=== PATIENT | male | born 1935 | race Caucasian/White ===

== ENCOUNTER 2016-11-27 08:05 | Emergency (ER) | payer MEDICARE, MEDICAID ==
--- NOTE | 2016-11-27 08:16 | EDM.PDOC ---
ED HISTORY OF PRESENT ILLNESS - General Chief Complaint: Respiratory Problem Stated Complaint: [id number] RATTLING IN CHEST LOW FEVER SOB Time Seen by Provider: 11/27/16 08:16 Source of Information: Reports: Old records, RN, RN notes reviewed, Other ([facility] Home caregiver/staff) History Limitations: Reports: Physical impairment (Dev. Delayed, non-ambulatory , non-verbal patient) - History of Present Illness INITIAL COMMENTS - FREE TEXT/NARRATIVE: Presented to ER from [facility] Home by van with caregiver reporting that pt was found to have a cough, low grade fever, and no appetite this morning. Pt has Hx of pneumonia. Denies pain, N/V/D/C. Pt is non-verbal and unable to provide any history. Symptom Onset Date: 11/27/16 Timing/Duration: Reports: Constant Severity: moderate Location, General: Reports: chest Improves with: Reports: None Worsens with: Reports: None Context, General: Reports: Sick contact (custodial resident.) Associated Symptoms (General): Reports: no other symptoms - Related Data Allergies/ADRs: Allergies Allergy/AdvReac Type Severity Reaction Status Date / Time No Known Allergies Allergy Verified 04/24/16 18:25 Home Meds: Home Meds Aspirin [Lis Chewable Aspirin] 81 mg PO BEDTIME 09/08/13 [History] Calcium Carb & Citrate/Vit D3 [Calcium + D3 ER Tablet] 1 each PO BID 09/08/13 [ History] Carbamide Peroxide [Debrox] 15 ml OT ASDIRECTED 09/08/13 [History] Multivitamin [Multi-Vitamin Daily] 1 tab PO DAILY 09/08/13 [History] QUEtiapine [SEROquel] 50 mg PO DAILY 09/08/13 [History] QUEtiapine [SEROquel] 100 mg PO BEDTIME 09/08/13 [History] Levothyroxine [Synthroid] 100 mcg PO ACBREAKFAST tablet 06/14/15 [Rx] Clopidogrel [Plavix] 75 mg PO BEDTIME 09/22/15 [History] Nitroglycerin [Nitrostat] 0.3 mg SL ASDIRECTED PRN 09/22/15 [History] diphenhydrAMINE [Benadryl] 25 mg PO BEDTIME PRN 09/22/15 [History] Acetaminophen 325 mg PO ASDIRECTED 05/23/16 [History] Lactose-Reduced Food [Ensure] 1 can PO TID 05/23/16 [History] Sennosides/Docusate Sodium [Senna S Tablet] 1 each PO BID 05/23/16 [History] Ibuprofen [Motrin] 400 mg PO Q6H PRN #30 tablet 05/26/16 [Rx] Lidocaine 5% [Lidoderm 5%] 700 mg TOP Q24H #12 patch 05/26/16 [Rx] Remove Patch 1 ea TRDERM BEDTIME each 05/26/16 [Rx] Past Medical History HEENT History: Reports: Impaired vision Cardiovascular History: Reports: Pacemaker, Syncope Respiratory History: Reports: Bronchitis, recurrent, Pneumonia, recurrent Gastrointestinal History: Reports: Chronic constipation Genitourinary History: Reports: Prostate disorder, Urinary incontinence, Other ( see below) Other Genitourinary History: prostate ca Musculoskeletal History: Reports: Osteoarthritis, Other (see below) Other Musculoskeletal History: compression fractures Neurological History: Reports: Other (see below) Other Neuro History: syncope Psychiatric History: Reports: Dementia, Developmental delay, Other (see below) Other Psychiatric History: devel delat, impulse disorder, ocd, intellectual disordr, head injury unspecified Endocrine/Metabolic History: Reports: Hypothyroidism Hematologic History: Reports: Anemia Oncologic (Cancer) History: Reports: Prostate, Other (see below) Other Oncologic History: pt on lupron injections Dermatologic History: Reports: Other (see below) Other Dermatologic History: skin to neck and head creme is to be applied as pt picks at skin - Infectious Disease History Infectious Disease History: Reports: Shingles - Past Surgical History Cardiovascular Surgical History: Reports: Pacer GI Surgical History: Reports: Colonoscopy Social & Family History - Family History Family Medical History: Noncontributory - Tobacco Use Smoking Status *Q: Unknown Ever Smoked Second Hand Smoke Exposure: No - Alcohol Use Days Per Week of Alcohol Use: 0 - Recreational Drug Use Recreational Drug Use: No - Living Situation & Occupation Living situation: Reports: other (custodial) Occupation: disabled ED ROS GENERAL - Review of Systems Review Of Systems: Unable To Obtain (non-verbal patient) ED EXAM, GENERAL - Physical Exam Exam: See Below Exam Limited By: Physical impairment (non-verbal, developmentally delayed patient.) General Appearance: alert, no apparent distress Eye Exam: bilateral eye: normal inspection Ears: normal external exam, normal canal, hearing loss (chronic/stable) Nose: normal inspection, normal mucosa, no blood Throat/Mouth: Normal lips, No airway compromise, Other (dry oral membranes) Head: atraumatic, normocephalic Neck: normal inspection, supple, non-tender, full range of motion Respiratory/Chest: no respiratory distress, no accessory muscle use, decreased breath sounds, crackles (bibasilar), other (decreased sounds at B/L bases) Cardiovascular: normal peripheral pulses GI/Abdominal: normal bowel sounds, soft, non tender, no distention, no abnormal bruit Back Exam: normal inspection Extremities: normal inspection Neurological: alert, no motor/sensory deficits, other (at neuro baseline per caregiver) Psychiatric: normal mood Skin Exam: Warm, Dry, Intact, No rash Course - Vital Signs Last Recorded V/S: Last Vital Signs Temp 37.0 C 11/27/16 08:10 Pulse 86 11/27/16 08:10 Resp 22 H 11/27/16 08:10 BP 103/62 11/27/16 08:10 Pulse Ox 95 11/27/16 08:10 - Orders/Labs/Meds Orders: Active Orders 24 hr Category Date Time Status INFLUENZA A+B AG SCREEN [RM] Stat Lab 11/27/16 08:26 Uncollected Labs: Laboratory Tests 11/27/16 11/27/16 Range/Units 08:28 08:28 WBC 12.2 H (5.0-10.0) 10^3/uL RBC 3.86 L (4.6-6.2) 10^6/uL Hgb 11.7 L (14.0-18.0) g/dL Hct 34.3 L (40.0-54.0) % MCV 88.9 (80-100) fL MCH 30.3 (27.0-34.0) pg MCHC 34.1 (33.0-35.0) g/dL Plt Count 247 (150-450) 10^3/uL Neut % (Auto) 73.6 (42.2-75.2) % Lymph % (Auto) 13.1 L (20.5-50.1) % [place] % (Auto) 8.0 (2-8) % Eos % (Auto) 4.8 H (1.0-3.0) % Baso % (Auto) 0.5 (0.0-1.0) % Sodium 132 L (135-145) mmol/L Potassium 4.4 (3.6-5.0) mmol/L Chloride 98 L (101-111) mmol/L Carbon Dioxide 26.0 (21.0-31.0) mmol/L Anion Gap 12.4 BUN 26 H (7-18) mg/dL Creatinine 0.9 (0.6-1.3) mg/dL Est Cr Clr Drug Dosing 50.05 mL/min Estimated GFR (MDRD) > 60 BUN/Creatinine Ratio 28.88 Glucose 92 (74-105) mg/dL Calcium 9.1 (8.4-10.2) mg/dl Total Bilirubin 0.6 (0.2-1.0) mg/dL AST 25 (10-42) IU/L ALT 18 (10-60) IU/L Alkaline Phosphatase 54 (42-121) IU/L Total Protein 7.0 (6.7-8.2) g/dl Albumin 3.8 (3.2-5.5) g/dl Globulin 3.2 Albumin/Globulin Ratio 1.19 - Radiology Interpretation Free Text/Narrative:: CXR: no acute process, chronic findings, see Rad. report. CT Results Date: 11/27/16 Departure - Departure Time of Disposition: 09:07 Disposition: Home, Self-Care 01 Condition: fair Clinical Impression: Acute bacterial bronchitis, History of aspiration pneumonia Fever Qualifiers: Fever type: unspecified Qualified Code(s): R50.9 - Fever, unspecified Instructions: Acute Bronchitis, Fever, Adult, [id number], Aspiration Precautions Forms: ED Department Discharge Additional Instructions: Rx: Clindamycin 300mg Follow up in clinic in 5 to 6 days for recheck. Return to ER if worse at any time. - My Orders Last 24 Hours: My Active Orders 11/27/16 08:26 INFLUENZA A+B AG SCREEN [RM] Stat - Assessment/Plan Last 24 Hours: My Active Orders 11/27/16 08:26 INFLUENZA A+B AG SCREEN [RM] Stat
[2016-11-27 08:23] VITALS: BP 103/62
[2016-11-27 08:53] LABS: CHLORIDE,CL 98 mmol/L (101-111); SODIUM,NA 132 mmol/L (135-145)
--- NOTE | 2016-11-27 08:57 | CR ---
CLINICAL HISTORY: 81-year-old male with cough. INTERPRETATION: Abnormal. Large hiatus hernia (air-fluid level) lower middle mediastinum. 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 No new signs of lobar pneumonia when compared to 24 October 2016 exam. Cardiac pacemaker and borderline cardiomegaly but no cephalization of vascular flow, signs of alveol ar edema or dependent pleural fluid accumulation. No lung mass or hilar lymphadenopathy. CONCLUSION: Large hiatus hernia (clinical aspiration?). No acute new cardiopulmonary abnormality or focal lobar pneumonia.
== END 2016-11-27 09:21 | disposition home or self-care (01) ==
LOC: DL.ED 08:05
DX: J20.8 Acute bronchitis due to other specified organisms (principal); M19.90 Unspecified osteoarthritis, unspecified site; E03.9 Hypothyroidism, unspecified; Z79.82 Long term (current) use of aspirin; Z79.899 Other long term (current) drug therapy
CPT/HCPCS: 36415; 71010; 80053; 85025; 99283; 99285

== ENCOUNTER 2017-03-12 11:35 | Emergency (ER) | payer MEDICARE, MEDICAID ==
--- NOTE | 2017-03-12 11:41 | EDM.PDOC ---
ED HPI GENERAL MEDICAL PROBLEM - General Chief Complaint: Respiratory Problem Stated Complaint: IN BY AMBULANCE Time Seen by Provider: 03/12/17 11:35 Source of Information: Reports: EMS, Other (caregiver) History Limitations: Reports: Other (The patient is a [facility] home patient with minimal communication) - History of Present Illness INITIAL COMMENTS - FREE TEXT/NARRATIVE: This 81 yo male patient was brought to the ED by [facility] due to labored breathing reported by the patient's caregivers. The caregivers called the patient's primary care facility and were advised to have the patient evaluated in the emergency department. EMS reports the patient did respond to questions, his respiration rate was 14 (non-labored), lung sounds were clear and oxygen saturation was in the upper 90's. Onset: Today, Sudden Onset Date: 03/12/17 Duration: Hour(s):, Constant Location: Reports: Chest Quality: Reports: Other Severity: Mild Improves with: Reports: None Worsens with: Reports: None Associated Symptoms: Reports: Shortness of Breath (labored breathing reported by caregivers) - Related Data Allergies Allergy/AdvReac Type Severity Reaction Status Date / Time No Known Allergies Allergy Verified 04/24/16 18:25 Home Meds: Home Meds Aspirin [Lis Chewable Aspirin] 81 mg PO BEDTIME 09/08/13 [History] Calcium Carb & Citrate/Vit D3 [Calcium + D3 ER Tablet] 1 each PO BID 09/08/13 [ History] Carbamide Peroxide [Debrox] 15 ml OT ASDIRECTED 09/08/13 [History] Multivitamin [Multi-Vitamin Daily] 1 tab PO DAILY 09/08/13 [History] QUEtiapine [SEROquel] 50 mg PO DAILY 09/08/13 [History] QUEtiapine [SEROquel] 100 mg PO BEDTIME 09/08/13 [History] Levothyroxine [Synthroid] 100 mcg PO ACBREAKFAST tablet 06/14/15 [Rx] Clopidogrel [Plavix] 75 mg PO BEDTIME 09/22/15 [History] Nitroglycerin [Nitrostat] 0.3 mg SL ASDIRECTED PRN 09/22/15 [History] diphenhydrAMINE [Benadryl] 25 mg PO BEDTIME PRN 09/22/15 [History] Acetaminophen 325 mg PO ASDIRECTED 05/23/16 [History] Lactose-Reduced Food [Ensure] 1 can PO TID 05/23/16 [History] Sennosides/Docusate Sodium [Senna S Tablet] 1 each PO BID 05/23/16 [History] Ibuprofen [Motrin] 400 mg PO Q6H PRN #30 tablet 05/26/16 [Rx] Lidocaine 5% [Lidoderm 5%] 700 mg TOP Q24H #12 patch 05/26/16 [Rx] Remove Patch 1 ea TRDERM BEDTIME each 05/26/16 [Rx] Past Medical History HEENT History: Reports: Impaired Vision Other HEENT History: [place] even with hearing aides. Wears glasses Cardiovascular History: Reports: Pacemaker, Syncope Respiratory History: Reports: Bronchitis, Recurrent, Pneumonia, Recurrent Gastrointestinal History: Reports: Chronic Constipation Genitourinary History: Reports: Prostate Disorder, Urinary Incontinence, Other ( See Below) Other Genitourinary History: prostate ca Musculoskeletal History: Reports: Osteoarthritis, Other (See Below) Other Musculoskeletal History: compression fractures Neurological History: Reports: Other (See Below) Other Neuro History: syncope Psychiatric History: Reports: Dementia, Developmental Delay, Other (See Below) Other Psychiatric History: devel delat, impulse disorder, ocd, intellectual disordr, head injury unspecified Endocrine/Metabolic History: Reports: Hypothyroidism Hematologic History: Reports: Anemia Oncologic (Cancer) History: Reports: Prostate, Other (See Below) Other Oncologic History: pt on lupron injections Dermatologic History: Reports: Other (See Below) Other Dermatologic History: skin to neck and head creme is to be applied as pt picks at skin - Infectious Disease History Infectious Disease History: Reports: Shingles - Past Surgical History Cardiovascular Surgical History: Reports: Pacer GI Surgical History: Reports: Colonoscopy Social & Family History - Family History Family Medical History: Noncontributory - Tobacco Use Smoking Status *Q: Unknown Ever Smoked Second Hand Smoke Exposure: No - Caffeine Use Caffeine Use: Reports: None - Alcohol Use Days Per Week of Alcohol Use: 0 - Recreational Drug Use Recreational Drug Use: No - Living Situation & Occupation Living situation: Reports: Other Occupation: Disabled ED ROS GENERAL - Review of Systems Review Of Systems: ROS reveals no pertinent complaints other than HPI. ED EXAM, GENERAL - Physical Exam Exam: See Below Exam Limited By: No Limitations General Appearance: Alert, WD/WN, No Apparent Distress Eye Exam: Bilateral Eye: EOMI, Normal Inspection, PERRL Ears: Normal External Exam, Hearing Grossly Normal, Normal TMs, Other (cerumen bilateral canals) Nose: Normal Inspection, Normal Mucosa, No Blood Throat/Mouth: Other (The patient refused to open his mouth during examination) Head: Atraumatic, Normocephalic Neck: Normal Inspection, Supple, Non-Tender, Full Range of Motion Respiratory/Chest: No Respiratory Distress, Lungs Clear, Normal Breath Sounds, No Accessory Muscle Use, Chest Non-Tender Cardiovascular: Normal Peripheral Pulses, Regular Rate, Rhythm, No Edema, No Gallop, No JVD, No Murmur, No Rub GI/Abdominal: Normal Bowel Sounds, Soft, Non-Tender, No Organomegaly, No Distention, No Abnormal Bruit, No Mass (Male) Exam: Deferred Rectal (Males) Exam: Deferred Back Exam: Normal Inspection, Full Range of Motion, NT Extremities: Normal Inspection, Normal Range of Motion, Non-Tender, Normal Capillary Refill, No Pedal Edema Neurological: Alert, CN II-XII Intact, Normal Cognition Psychiatric: Normal Affect, Normal Mood Skin Exam: Warm, Dry, Intact, Normal Color, No Rash Lymphatic: No Adenopathy Course - Vital Signs Last Recorded V/S: Last Vital Signs Temp 35.5 C 03/12/17 11:39 Pulse 80 03/12/17 11:39 Resp 20 03/12/17 11:39 BP 129/69 03/12/17 11:39 Pulse Ox 95 03/12/17 11:39 - Orders/Labs/Meds Labs: Laboratory Tests 03/12/17 03/12/17 Range/Units 11:45 11:45 WBC 8.3 (5.0-10.0) 10^3/uL RBC 4.22 L (4.6-6.2) 10^6/uL Hgb 12.5 L (14.0-18.0) g/dL Hct 36.1 L (40.0-54.0) % MCV 85.5 (80-100) fL MCH 29.6 (27.0-34.0) pg MCHC 34.6 (33.0-35.0) g/dL Plt Count 219 (150-450) 10^3/uL Neut % (Auto) 65.9 (42.2-75.2) % Lymph % (Auto) 21.8 (20.5-50.1) % [place] % (Auto) 5.3 (2-8) % Eos % (Auto) 6.5 H (1.0-3.0) % Baso % (Auto) 0.5 (0.0-1.0) % Sodium 134 L (135-145) mmol/L Potassium 4.9 (3.6-5.0) mmol/L Chloride 98 L (101-111) mmol/L Carbon Dioxide 27.0 (21.0-31.0) mmol/L Anion Gap 13.9 BUN 20 H (7-18) mg/dL Creatinine 1.0 (0.6-1.3) mg/dL Est Cr Clr Drug Dosing TNP Estimated GFR (MDRD) > 60 BUN/Creatinine Ratio 20.00 Glucose 90 (74-105) mg/dL Calcium 9.5 (8.4-10.2) mg/dl Total Bilirubin 0.7 (0.2-1.0) mg/dL AST 21 (10-42) IU/L ALT 17 (10-60) IU/L Alkaline Phosphatase 60 (42-121) IU/L Total Protein 6.9 (6.7-8.2) g/dl Albumin 3.8 (3.2-5.5) g/dl Globulin 3.1 Albumin/Globulin Ratio 1.23 Departure - Departure Time of Disposition: 12:15 Disposition: Home, Self-Care 01 Condition: Fair Clinical Impression: Worried well - Discharge Information Forms: ED Department Discharge Care Plan Goals: The patient's caregiver was advised of the examination, lab and x-ray results during the visit. The caregiver was encouraged to continue to monitor the patient for any additional changes or symptoms. If the patient has any additional symptoms or further concerns, the patient should follow-up with his primary care facility or return to the emergency department.
[2017-03-12 12:08] LABS: CHLORIDE,CL 98 mmol/L (101-111); SODIUM,NA 134 mmol/L (135-145)
--- NOTE | 2017-03-12 12:11 | CR ---
Clinical history: 81-year-old male "labored" breathing. Interpretation: Old healed fracture deformity left clavicle. Cardiac pacemaker leads intact. Less than optimal inspiratory effort crowds and accentuates the cardiac silhouette and lung markings but no cephalization of vascular flow, signs of alveolar edema or dependent effusion i.e. no curren t evidence of heart failure. No lung mass, hilar lymphadenopathy or new focal lobar pneumonia when compared to similar AP film 27 November 2016. CONCLUSION: No acute new cardiopulmonary abnormality. No pneumothorax.
[2017-03-12 12:17] VITALS: BP 131/70
== END 2017-03-12 12:30 | disposition home or self-care (01) ==
LOC: DL.ED 11:35
DX: Z71.1 Person with feared health complaint in whom no diagnosis is made (principal); H54.7 Unspecified visual loss; Z87.01 Personal history of pneumonia (recurrent); E03.9 Hypothyroidism, unspecified; Z79.82 Long term (current) use of aspirin; Z79.899 Other long term (current) drug therapy; M19.90 Unspecified osteoarthritis, unspecified site; Z86.2 Personal history of diseases of the blood and blood-forming organs and certain disorders involving the immune mechanism
CPT/HCPCS: 36415; 71010; 80053; 85025; 99282; 99285

== ENCOUNTER 2017-04-10 13:31 | Emergency (ER) | payer MEDICARE, MEDICAID ==
[2017-04-10 14:28] VITALS: BP 123/74
--- NOTE | 2017-04-10 15:37 | CR ---
Clinical history: 81-year-old male clinical "aspiration". Interpretation: Hiatus hernia incarcerated in the lower middle mediastinum and chronic coarse accent uation of the lung markings both bases but no new focal lobar consolidation compared 12 March 2017 ex am. Less than optimal his story effort exaggerating the cardiac silhouette which remains within normal l imits and no new cephalization of flow, signs of alveolar edema or dependent pleural effusion compar ed to the 12 March film (cardiac pacemaker leads intact and unchanged). No lung mass or hilar lymphadenopathy. CONCLUSION: Hiatus hernia. No lobar pneumonia.
--- NOTE | 2017-04-10 15:47 | EDM.PDOC ---
ED HPI GENERAL MEDICAL PROBLEM - General Chief Complaint: General Stated Complaint: CHOKED WHILE EATING/COMING BY PRIVATE CAR Time Seen by Provider: 04/10/17 15:15 Source of Information: Reports: Provider History Limitations: Reports: No Limitations - History of Present Illness INITIAL COMMENTS - FREE TEXT/NARRATIVE: 81 yo male presents for evaluation after choking on lunch. Per skin care specialist, pt was eating pureed diet and had a coughing spells that resolved without interventions. Pt is alert, confused at baseline but in no distress. Denies pain. No other complaints. Onset: Today Duration: Resolved Prior to Arrival Associated Symptoms: Reports: No Other Symptoms - Related Data Allergies Allergy/AdvReac Type Severity Reaction Status Date / Time No Known Allergies Allergy Verified 04/10/17 14:28 Home Meds: Home Meds Aspirin [Lis Chewable Aspirin] 81 mg PO BEDTIME 09/08/13 [History] Calcium Carb & Citrate/Vit D3 [Calcium + D3 ER Tablet] 1 each PO BID 09/08/13 [ History] Carbamide Peroxide [Debrox] 15 ml OT ASDIRECTED 09/08/13 [History] QUEtiapine [SEROquel] 50 mg PO DAILY 09/08/13 [History] QUEtiapine [SEROquel] 100 mg PO BEDTIME 09/08/13 [History] Levothyroxine [Synthroid] 100 mcg PO ACBREAKFAST tablet 06/14/15 [Rx] Clopidogrel [Plavix] 75 mg PO BEDTIME 09/22/15 [History] Nitroglycerin [Nitrostat] 0.3 mg SL ASDIRECTED PRN 09/22/15 [History] diphenhydrAMINE [Benadryl] 25 mg PO BEDTIME PRN 09/22/15 [History] Acetaminophen 325 mg PO ASDIRECTED 05/23/16 [History] Lactose-Reduced Food [Ensure] 1 can PO TID 05/23/16 [History] Sennosides/Docusate Sodium [Senna S Tablet] 1 each PO BID 05/23/16 [History] Ibuprofen [Motrin] 400 mg PO Q6H PRN #30 tablet 05/26/16 [Rx] Lidocaine 5% [Lidoderm 5%] 700 mg TOP Q24H #12 patch 05/26/16 [Rx] Remove Patch 1 ea TRDERM BEDTIME each 05/26/16 [Rx] Naproxen [Naprosyn] 275 mg PO Q12HR 04/10/17 [History] Past Medical History HEENT History: Reports: Impaired Vision Other HEENT History: [place] even with hearing aides. Wears glasses Cardiovascular History: Reports: Pacemaker, Syncope Respiratory History: Reports: Bronchitis, Recurrent, Pneumonia, Recurrent Gastrointestinal History: Reports: Chronic Constipation Genitourinary History: Reports: Prostate Disorder, Urinary Incontinence, Other ( See Below) Other Genitourinary History: prostate ca Musculoskeletal History: Reports: Osteoarthritis, Other (See Below) Other Musculoskeletal History: compression fractures Neurological History: Reports: Other (See Below) Other Neuro History: syncope Psychiatric History: Reports: Dementia, Developmental Delay, Other (See Below) Other Psychiatric History: devel delat, impulse disorder, ocd, intellectual disordr, head injury unspecified Endocrine/Metabolic History: Reports: Hypothyroidism Hematologic History: Reports: Anemia Oncologic (Cancer) History: Reports: Prostate, Other (See Below) Other Oncologic History: pt on lupron injections Dermatologic History: Reports: Other (See Below) Other Dermatologic History: skin to neck and head creme is to be applied as pt picks at skin - Infectious Disease History Infectious Disease History: Reports: Shingles - Past Surgical History Cardiovascular Surgical History: Reports: Pacer GI Surgical History: Reports: Colonoscopy Social & Family History - Family History Family Medical History: Noncontributory - Tobacco Use Smoking Status *Q: Never Smoker Second Hand Smoke Exposure: No - Caffeine Use Caffeine Use: Reports: None - Alcohol Use Days Per Week of Alcohol Use: 0 - Recreational Drug Use Recreational Drug Use: No - Living Situation & Occupation Living situation: Reports: Other Occupation: Disabled ED ROS GENERAL - Review of Systems Review Of Systems: ROS reveals no pertinent complaints other than HPI. ED EXAM, GENERAL - Physical Exam Exam: See Below Exam Limited By: No Limitations General Appearance: Alert, WD/WN, No Apparent Distress Eye Exam: Bilateral Eye: PERRL Respiratory/Chest: No Respiratory Distress, Lungs Clear, Normal Breath Sounds, No Accessory Muscle Use, Chest Non-Tender Cardiovascular: Normal Peripheral Pulses, Regular Rate, Rhythm, No Edema, No Gallop, No JVD, No Murmur, No Rub GI/Abdominal: Normal Bowel Sounds, Soft, Non-Tender, No Organomegaly, No Distention, No Abnormal Bruit, No Mass Neurological: Alert, Oriented, No Motor/Sensory Deficits, Confused Skin Exam: Warm, Dry, Intact, Normal Color, No Rash Course - Vital Signs Last Recorded V/S: Last Vital Signs Temp 96.4 F 04/10/17 14:19 Pulse 84 04/10/17 14:19 Resp 16 04/10/17 14:19 BP 123/74 04/10/17 14:19 Pulse Ox 94 L 04/10/17 14:19 - Radiology Interpretation Free Text/Narrative:: No pneumonia noted, hiatal hernia unchanged. Departure - Departure Time of Disposition: 15:47 Disposition: Home, Self-Care 01 Condition: Good Clinical Impression: Choking episode - Discharge Information Instructions: Dysphagia Diet Level 1, Pureed, Choking, Adult Forms: ED Department Discharge Additional Instructions: Return for any worsening symptoms.
== END 2017-04-10 15:50 | disposition home or self-care (01) ==
LOC: DL.ED 13:31
DX: R09.89 Other specified symptoms and signs involving the circulatory and respiratory systems (principal); M19.90 Unspecified osteoarthritis, unspecified site; E03.9 Hypothyroidism, unspecified; Z79.899 Other long term (current) drug therapy; Z79.82 Long term (current) use of aspirin; F03.90 Unspecified dementia, unspecified severity, without behavioral disturbance, psychotic disturbance, mood disturbance, and anxiety; Z87.01 Personal history of pneumonia (recurrent); Z85.46 Personal history of malignant neoplasm of prostate; Z86.2 Personal history of diseases of the blood and blood-forming organs and certain disorders involving the immune mechanism
CPT/HCPCS: 71010; 99284

== ENCOUNTER 2017-04-29 16:58 | Emergency (ER) | payer MEDICARE, MEDICAID ==
[2017-04-29 17:05] VITALS: BP 131/78
--- NOTE | 2017-04-29 17:45 | EDM.PDOC ---
Scribed by Guerline Borges 04/29/17 [id number] for Vipul Sy MD ED HPI GENERAL MEDICAL PROBLEM - General Chief Complaint: Respiratory Problem Stated Complaint: LABORED BREATHING Time Seen by Provider: 04/29/17 17:12 Source of Information: Reports: Old Records, RN, RN Notes Reviewed, Other ( [facility]) History Limitations: Reports: Other (nonverbal) - History of Present Illness INITIAL COMMENTS - FREE TEXT/NARRATIVE: Patient brought to ER by [facility] Home van with report that he was seen to cough and choke at 16:30 today. Patient has been back to normal now for about 30 minutes. Patient has history of aspiration and care staff at [facility] wanted him checked. Patient is nonverbal. Onset: Today Location: Reports: Chest Severity: Mild Improves with: Reports: None Worsens with: Reports: None Associated Symptoms: Reports: No Other Symptoms - Related Data Allergies Allergy/AdvReac Type Severity Reaction Status Date / Time No Known Allergies Allergy Verified 04/10/17 14:28 Home Meds: Home Meds Aspirin [Lis Chewable Aspirin] 81 mg PO BEDTIME 09/08/13 [History] Calcium Carb & Citrate/Vit D3 [Calcium + D3 ER Tablet] 1 each PO BID 09/08/13 [ History] Carbamide Peroxide [Debrox] 15 ml OT ASDIRECTED 09/08/13 [History] QUEtiapine [SEROquel] 50 mg PO DAILY 09/08/13 [History] QUEtiapine [SEROquel] 100 mg PO BEDTIME 09/08/13 [History] Levothyroxine [Synthroid] 100 mcg PO ACBREAKFAST tablet 06/14/15 [Rx] Clopidogrel [Plavix] 75 mg PO BEDTIME 09/22/15 [History] Nitroglycerin [Nitrostat] 0.3 mg SL ASDIRECTED PRN 09/22/15 [History] diphenhydrAMINE [Benadryl] 25 mg PO BEDTIME PRN 09/22/15 [History] Acetaminophen 325 mg PO ASDIRECTED 05/23/16 [History] Lactose-Reduced Food [Ensure] 1 can PO TID 05/23/16 [History] Sennosides/Docusate Sodium [Senna S Tablet] 1 each PO BID 05/23/16 [History] Ibuprofen [Motrin] 400 mg PO Q6H PRN #30 tablet 05/26/16 [Rx] Lidocaine 5% [Lidoderm 5%] 700 mg TOP Q24H #12 patch 05/26/16 [Rx] Remove Patch 1 ea TRDERM BEDTIME each 05/26/16 [Rx] Naproxen [Naprosyn] 275 mg PO Q12HR 04/10/17 [History] Past Medical History HEENT History: Reports: Impaired Vision Other HEENT History: [place] even with hearing aides. Wears glasses Cardiovascular History: Reports: Pacemaker, Syncope Respiratory History: Reports: Bronchitis, Recurrent, Pneumonia, Recurrent Gastrointestinal History: Reports: Chronic Constipation Genitourinary History: Reports: Prostate Disorder, Urinary Incontinence, Other ( See Below) Other Genitourinary History: prostate ca Musculoskeletal History: Reports: Osteoarthritis, Other (See Below) Other Musculoskeletal History: compression fractures Neurological History: Reports: Other (See Below) Other Neuro History: syncope Psychiatric History: Reports: Dementia, Developmental Delay, Other (See Below) Other Psychiatric History: devel delat, impulse disorder, ocd, intellectual disordr, head injury unspecified Endocrine/Metabolic History: Reports: Hypothyroidism Hematologic History: Reports: Anemia Oncologic (Cancer) History: Reports: Prostate, Other (See Below) Other Oncologic History: pt on lupron injections Dermatologic History: Reports: Other (See Below) Other Dermatologic History: skin to neck and head creme is to be applied as pt picks at skin - Infectious Disease History Infectious Disease History: Reports: Shingles - Past Surgical History Cardiovascular Surgical History: Reports: Pacer GI Surgical History: Reports: Colonoscopy Social & Family History - Family History Family Medical History: Noncontributory - Tobacco Use Smoking Status *Q: Never Smoker Second Hand Smoke Exposure: No - Caffeine Use Caffeine Use: Reports: None - Alcohol Use Days Per Week of Alcohol Use: 0 - Recreational Drug Use Recreational Drug Use: No - Living Situation & Occupation Living situation: Reports: Other Occupation: Disabled ED ROS GENERAL - Review of Systems Review Of Systems: Unable To Obtain (nonverbal.) ED EXAM, GENERAL - Physical Exam Exam: See Below Exam Limited By: Other (nonverbal) General Appearance: Alert, WD/WN, No Apparent Distress Eye Exam: Bilateral Eye: Normal Inspection Ears: Normal External Exam, Normal Canal, Hearing Grossly Normal, Normal TMs Nose: Normal Inspection, Normal Mucosa, No Blood Throat/Mouth: Normal Inspection, Normal Lips, Normal Teeth, Normal Gums, Normal Oropharynx, Normal Voice, No Airway Compromise Head: Atraumatic, Normocephalic Neck: Normal Inspection, Supple, Non-Tender, Full Range of Motion Respiratory/Chest: No Respiratory Distress, Lungs Clear, Normal Breath Sounds, No Accessory Muscle Use, Chest Non-Tender Cardiovascular: Normal Peripheral Pulses, Regular Rate, Rhythm, No Edema, No Gallop, No JVD, No Murmur, No Rub GI/Abdominal: Normal Bowel Sounds, Soft, Non-Tender, No Organomegaly, No Distention, No Abnormal Bruit, No Mass (Male) Exam: Deferred Rectal (Males) Exam: Deferred Back Exam: Normal Inspection Extremities: Normal Inspection, Normal Range of Motion, Non-Tender, Normal Capillary Refill, No Pedal Edema Neurological: Other (at baseline with no new deficits. ) Skin Exam: Warm, Dry, Intact, Normal Color, No Rash Course - Vital Signs Last Recorded V/S: Last Vital Signs Temp 36.3 C 04/29/17 17:04 Pulse 87 04/29/17 17:04 Resp 20 04/29/17 17:04 BP 131/78 04/29/17 17:04 Pulse Ox 95 04/29/17 17:04 - Orders/Labs/Meds Labs: Laboratory Tests 04/29/17 Range/Units 17:26 WBC 12.0 H (5.0-10.0) 10^3/uL RBC 4.13 L (4.6-6.2) 10^6/uL Hgb 12.1 L (14.0-18.0) g/dL Hct 35.4 L (40.0-54.0) % MCV 85.7 (80-100) fL MCH 29.3 (27.0-34.0) pg MCHC 34.2 (33.0-35.0) g/dL Plt Count 221 (150-450) 10^3/uL Neut % (Auto) 71.1 (42.2-75.2) % Lymph % (Auto) 16.1 L (20.5-50.1) % [place] % (Auto) 7.5 (2-8) % Eos % (Auto) 4.9 H (1.0-3.0) % Baso % (Auto) 0.4 (0.0-1.0) % - Radiology Interpretation Free Text/Narrative:: Chest x-ray: Per rad report reveals no active disease of the chest. No sign of aspiration. 3.4cm mass like density most likely relating to hiatal hernia. Departure - Departure Time of Disposition: 17:43 Disposition: Home, Self-Care 01 Condition: Good Clinical Impression: Choking episode - Discharge Information Instructions: Choking, Adult Forms: ED Department Discharge Additional Instructions: Follow up in clinic if any further problems. Return to ER if any new symptoms develop. I have read and agree with the documentation that has been completed regarding this visit. By signing this record, I attest that the documentation was completed in my physical presence and is an accurate record of the encounter.
--- NOTE | 2017-04-29 18:02 | CR ---
Clinical history: 82-year-old male possible aspiration. 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 Borderline cardiomegaly and subtle relative increase venous congestion since earlier film this patie nt with cardiac pacemaker. No new lung mass, hilar lymphadenopathy or focal lobar pneumonia. No atelectasis/collapse. CONCLUSION: Suggestion mild cardiovascular decompensation. Clinical? No lobar pneumonia.
== END 2017-04-29 17:51 | disposition home or self-care (01) ==
LOC: DL.ED 16:58
DX: R09.89 Other specified symptoms and signs involving the circulatory and respiratory systems (principal); M19.90 Unspecified osteoarthritis, unspecified site; F03.90 Unspecified dementia, unspecified severity, without behavioral disturbance, psychotic disturbance, mood disturbance, and anxiety; E03.9 Hypothyroidism, unspecified; Z85.46 Personal history of malignant neoplasm of prostate; Z95.0 Presence of cardiac pacemaker; Z79.02 Long term (current) use of antithrombotics/antiplatelets; Z79.82 Long term (current) use of aspirin; Z79.899 Other long term (current) drug therapy
CPT/HCPCS: 36415; 71010; 85025; 99282; 99283

== ENCOUNTER 2017-06-20 21:00 | Inpatient (IN) | payer MEDICARE, MEDICAID ==
--- NOTE | 2017-06-20 21:06 | EDM.PDOC ---
ED HPI GENERAL MEDICAL PROBLEM - General Chief Complaint: Respiratory Problem Stated Complaint: BY AMBULANCE Time Seen by Provider: 06/20/17 21:01 Source of Information: Reports: Longterm Records History Limitations: Reports: No Limitations - History of Present Illness INITIAL COMMENTS - FREE TEXT/NARRATIVE: Dx bronchitis yesterday Tx with doxy & prednisone. not getting better. - Related Data Allergies Allergy/AdvReac Type Severity Reaction Status Date / Time No Known Allergies Allergy Verified 06/20/17 21:08 Home Meds: Home Meds Aspirin [Lis Chewable Aspirin] 81 mg PO BEDTIME 09/08/13 [History] Calcium Carb & Citrate/Vit D3 [Calcium + D3 ER Tablet] 1 each PO BID 09/08/13 [ History] Carbamide Peroxide [Debrox] 15 ml OT ASDIRECTED 09/08/13 [History] QUEtiapine [SEROquel] 50 mg PO DAILY 09/08/13 [History] QUEtiapine [SEROquel] 100 mg PO BEDTIME 09/08/13 [History] Levothyroxine [Synthroid] 100 mcg PO ACBREAKFAST tablet 06/14/15 [Rx] Clopidogrel [Plavix] 75 mg PO BEDTIME 09/22/15 [History] Nitroglycerin [Nitrostat] 0.3 mg SL ASDIRECTED PRN 09/22/15 [History] diphenhydrAMINE [Benadryl] 25 mg PO BEDTIME PRN 09/22/15 [History] Acetaminophen 325 mg PO ASDIRECTED 05/23/16 [History] Lactose-Reduced Food [Ensure] 1 can PO TID 05/23/16 [History] Sennosides/Docusate Sodium [Senna S Tablet] 1 each PO BID 05/23/16 [History] Alendronate [Fosamax] 1 tab PO WEEKLY 06/20/17 [History] Bacitracin/Neomycin/Polymyxin [Triple Antibiotic Oint] 1 applic TOP ASDIRECTED PRN 06/20/17 [History] Bicalutamide [Casodex] 1 tab PO DAILY 06/20/17 [History] Doxycycline [Vibramycin] 1 tab PO QID 06/20/17 [History] Glycerin 1 supp RECTAL ASDIRECTED PRN 06/20/17 [History] Multivitamins w-Iron/Ca/FA/Min [Thera M Plus] 1 tab PO DAILY 06/20/17 [History] Naproxen Sodium 1 tab PO BID 06/20/17 [History] hydrOXYzine HCl [Atarax] 1 tab PO TID 06/20/17 [History] methylPREDNISolone [Medrol] 1 tab PO DAILY 06/20/17 [History] Past Medical History HEENT History: Reports: Impaired Vision Other HEENT History: [place] even with hearing aides. Wears glasses Cardiovascular History: Reports: Pacemaker, Syncope Respiratory History: Reports: Bronchitis, Recurrent, Pneumonia, Recurrent Gastrointestinal History: Reports: Chronic Constipation Genitourinary History: Reports: Prostate Disorder, Urinary Incontinence, Other ( See Below) Other Genitourinary History: prostate ca Musculoskeletal History: Reports: Osteoarthritis, Other (See Below) Other Musculoskeletal History: compression fractures Neurological History: Reports: Other (See Below) Other Neuro History: syncope Psychiatric History: Reports: Dementia, Developmental Delay, Other (See Below) Other Psychiatric History: devel delat, impulse disorder, ocd, intellectual disordr, head injury unspecified Endocrine/Metabolic History: Reports: Hypothyroidism Hematologic History: Reports: Anemia Oncologic (Cancer) History: Reports: Prostate, Other (See Below) Other Oncologic History: pt on lupron injections Dermatologic History: Reports: Other (See Below) Other Dermatologic History: skin to neck and head creme is to be applied as pt picks at skin - Infectious Disease History Infectious Disease History: Reports: Shingles - Past Surgical History Cardiovascular Surgical History: Reports: Pacer GI Surgical History: Reports: Colonoscopy Social & Family History - Family History Family Medical History: Noncontributory - Tobacco Use Smoking Status *Q: Never Smoker Second Hand Smoke Exposure: No - Caffeine Use Caffeine Use: Reports: None - Alcohol Use Days Per Week of Alcohol Use: 0 - Recreational Drug Use Recreational Drug Use: No - Living Situation & Occupation Living situation: Reports: Other Occupation: Disabled ED ROS GENERAL - Review of Systems Review Of Systems: ROS reveals no pertinent complaints other than HPI. ED EXAM, GENERAL - Physical Exam Exam: See Below Exam Limited By: No Limitations General Appearance: Alert, WD/WN, No Apparent Distress Ears: Hearing Grossly Normal Throat/Mouth: Normal Voice, No Airway Compromise Head: Atraumatic Neck: Non-Tender, Full Range of Motion Respiratory/Chest: No Respiratory Distress, No Accessory Muscle Use, Rales, Rhonchi Cardiovascular: Regular Rate, Rhythm GI/Abdominal: Soft, Non-Tender Neurological: Alert, Normal Cognition Psychiatric: Normal Affect, Normal Mood Skin Exam: Warm, Dry, Normal Color Lymphatic: No Adenopathy Course - Vital Signs Last Recorded V/S: Last Vital Signs Temp 36.7 C 06/20/17 21:12 Pulse 90 06/20/17 21:12 Resp 19 06/20/17 21:12 BP 127/73 06/20/17 21:12 Pulse Ox 2 L 06/20/17 21:12 - Orders/Labs/Meds Orders: Active Orders 24 hr Category Date Time Status RT Aerosol Therapy [RC] ASDIRECTED Care 06/20/17 21:21 Ordered CULTURE BLOOD [BC] Stat Lab 06/20/17 21:00 Received CULTURE BLOOD [BC] Stat Lab 06/20/17 21:05 Results Labs: Laboratory Tests 06/20/17 06/20/17 06/20/17 Range/Units 21:00 21:00 21:00 WBC 22.4 H (5.0-10.0) 10^3/uL RBC 4.16 L (4.6-6.2) 10^6/uL Hgb 12.0 L (14.0-18.0) g/dL Hct 34.7 L (40.0-54.0) % MCV 83.4 (80-100) fL MCH 28.8 (27.0-34.0) pg MCHC 34.6 (33.0-35.0) g/dL Plt Count 292 (150-450) 10^3/uL Neut % (Auto) 88.2 H (42.2-75.2) % Lymph % (Auto) 5.1 L (20.5-50.1) % [place] % (Auto) 6.6 (2-8) % Eos % (Auto) 0.0 L (1.0-3.0) % Baso % (Auto) 0.1 (0.0-1.0) % Add Manual Diff Yes Neutrophils % (Manual) 73 % Band Neutrophils % 15 % Lymphocytes % (Manual) 6 % Atypical Lymphs % 0 % Monocytes % (Manual) 2 % Eosinophils % (Manual) 4 % Basophils % (Manual) 0 Sodium 130 L (135-145) mmol/L Potassium 4.7 (3.6-5.0) mmol/L Chloride 95 L (101-111) mmol/L Carbon Dioxide 21.0 (21.0-31.0) mmol/L Anion Gap 18.7 BUN 27 H (7-18) mg/dL Creatinine 1.0 (0.6-1.3) mg/dL Est Cr Clr Drug Dosing 44.24 mL/min Estimated GFR (MDRD) > 60 BUN/Creatinine Ratio 27.00 Glucose 188 H (74-105) mg/dL Lactic Acid 3.1 H (0.5-2.2) mmol/L Calcium 9.1 (8.4-10.2) mg/dl Total Bilirubin 0.5 (0.2-1.0) mg/dL AST 33 (10-42) IU/L ALT 19 (10-60) IU/L Alkaline Phosphatase 74 (42-121) IU/L Total Protein 7.2 (6.7-8.2) g/dl Albumin 3.7 (3.2-5.5) g/dl Globulin 3.5 Albumin/Globulin Ratio 1.06 Meds: Medications Discontinued Medications Generic Name Dose Route Start Last Admin Trade Name Freq PRN Reason Stop Dose Admin Albuterol/Ipratropium 3 ml 06/20/17 21:21 06/20/17 21:24 Duoneb 3.0-0.5 Mg/3 Ml NEB 06/20/17 21:22 3 ml ONETIME ONE Administration - Re-Assessments/Exams Free Text/Narrative Re-Assessment/Exam: 06/20/17 21:[address] Monroy who kindly admitted pt. Departure - Departure Time of Disposition: 21:57 Disposition: Admitted As Inpatient 66 Condition: Fair Clinical Impression: Pneumonia Qualifiers: Pneumonia type: due to unspecified organism Laterality: bilateral Lung location : lower lobe of lung Qualified Code(s): J18.9 - Pneumonia, unspecified organism - Discharge Information Forms: ED Department Discharge - My Orders Last 24 Hours: My Active Orders 06/20/17 21:00 CULTURE BLOOD [BC] Stat 06/20/17 21:05 CULTURE BLOOD [BC] Stat 06/20/17 21:21 RT Aerosol Therapy [RC] ASDIRECTED - Assessment/Plan Last 24 Hours: My Active Orders 06/20/17 21:00 CULTURE BLOOD [BC] Stat 06/20/17 21:05 CULTURE BLOOD [BC] Stat 06/20/17 21:21 RT Aerosol Therapy [RC] ASDIRECTED
[2017-06-20] MEDS ORDERED: Albuterol/Ipratropium 3.0-0.5 MG/3 ML Neb Soln NEB ONE (21:21)
[2017-06-20 21:29] LABS: CHLORIDE,CL 95 mmol/L (101-111); SODIUM,NA 130 mmol/L (135-145)
--- NOTE | 2017-06-20 22:41 | PCM.HP ---
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 He was seen in [facility] on 06/19/17 with progressive increase in shortness of breath and was given Solumedrol 125 mg X 1 dose and send back to [place] on doxycycline 100 mg BID X 10 days course and Medrol Dosepack. He came to ED tonight with increasing shortness of breath which is not Improving. He had CXR done shoed B/L patchy Infiltrate and now getting admitted for Bronchitis/ aspiration Pneumonia. The pt has past history os aspiration pneumonia Onset of Symptoms: Reports: Gradual Associated Symptoms: Reports: cough w sputum, Shortness of Breath - Related Data Allergies/Adverse Reactions: Allergies Allergy/AdvReac Type Severity Reaction Status Date / Time No Known Allergies Allergy Verified 06/20/17 21:08 Home Medications: Home Meds Aspirin [Lis Chewable Aspirin] 81 mg PO BEDTIME 09/08/13 [History] Calcium Carb & Citrate/Vit D3 [Calcium + D3 ER Tablet] 1 each PO BID 09/08/13 [ History] Carbamide Peroxide [Debrox] 15 ml OT ASDIRECTED 09/08/13 [History] QUEtiapine [SEROquel] 50 mg PO DAILY 09/08/13 [History] QUEtiapine [SEROquel] 100 mg PO BEDTIME 09/08/13 [History] Levothyroxine [Synthroid] 100 mcg PO ACBREAKFAST tablet 06/14/15 [Rx] Clopidogrel [Plavix] 75 mg PO BEDTIME 09/22/15 [History] Nitroglycerin [Nitrostat] 0.3 mg SL ASDIRECTED PRN 09/22/15 [History] diphenhydrAMINE [Benadryl] 25 mg PO BEDTIME PRN 09/22/15 [History] Acetaminophen 325 mg PO ASDIRECTED 05/23/16 [History] Lactose-Reduced Food [Ensure] 1 can PO TID 05/23/16 [History] Sennosides/Docusate Sodium [Senna S Tablet] 1 each PO BID 05/23/16 [History] Alendronate [Fosamax] 1 tab PO WEEKLY 06/20/17 [History] Bacitracin/Neomycin/Polymyxin [Triple Antibiotic Oint] 1 applic TOP ASDIRECTED PRN 06/20/17 [History] Bicalutamide [Casodex] 1 tab PO DAILY 06/20/17 [History] Doxycycline [Vibramycin] 1 tab PO QID 06/20/17 [History] Glycerin 1 supp RECTAL ASDIRECTED PRN 06/20/17 [History] Lidocaine [Lidoderm] TOP DAILY 06/20/17 [History] Multivitamins w-Iron/Ca/FA/Min [Thera M Plus] 1 tab PO DAILY 06/20/17 [History] Naproxen Sodium 1 tab PO BID 06/20/17 [History] hydrOXYzine HCl [Atarax] 1 tab PO TID 06/20/17 [History] methylPREDNISolone [Medrol] 1 tab PO DAILY 06/20/17 [History] Past Medical History HEENT History: Reports: Impaired Vision Other HEENT History: [place] even with hearing aides. Wears glasses Cardiovascular History: Reports: Pacemaker, Syncope Respiratory History: Reports: Bronchitis, Recurrent, Pneumonia, Recurrent Gastrointestinal History: Reports: Chronic Constipation Genitourinary History: Reports: Prostate Disorder, Urinary Incontinence, Other ( See Below) Other Genitourinary History: prostate ca Musculoskeletal History: Reports: Osteoarthritis, Other (See Below) Other Musculoskeletal History: compression fractures Neurological History: Reports: Other (See Below) Other Neuro History: syncope Psychiatric History: Reports: Dementia, Developmental Delay, Other (See Below) Other Psychiatric History: devel delat, impulse disorder, ocd, intellectual disordr, head injury unspecified Endocrine/Metabolic History: Reports: Hypothyroidism Hematologic History: Reports: Anemia Oncologic (Cancer) History: Reports: Prostate, Other (See Below) Other Oncologic History: pt on lupron injections Dermatologic History: Reports: Other (See Below) Other Dermatologic History: skin to neck and head creme is to be applied as pt picks at skin - Infectious Disease History Infectious Disease History: Reports: Shingles - Past Surgical History Cardiovascular Surgical History: Reports: Pacer GI Surgical History: Reports: Colonoscopy Social & Family History - Family History Family Medical History: Noncontributory - Tobacco Use Smoking Status *Q: Never Smoker Second Hand Smoke Exposure: No - Caffeine Use Caffeine Use: Reports: None - Alcohol Use Days Per Week of Alcohol Use: 0 - Recreational Drug Use Recreational Drug Use: No - Living Situation & Occupation Living situation: Reports: Other Occupation: Disabled H&P Review of Systems - Review of Systems: Review Of Systems: Unable To Obtain (Pt do not talk and heard of hearing) Exam - Exam Exam: See Below - Vital Signs Vital Signs: Last Vital Signs Temp 37.0 C 06/20/17 22:23 Pulse 85 06/20/17 22:23 Resp 18 06/20/17 22:23 BP 109/57 L 06/20/17 22:23 Pulse Ox 94 L 06/20/17 22:23 Weight: 76.657 kg - Exam Quality Assessment: Supplemental Oxygen. No: Restraints General: Alert, Cooperative. No: Oriented HEENT: Conjunctiva Clear, EOMI, Mucosa Moist & [place], Pupils Equal, Pupils Reactive Neck: Supple. No: Lymphadenopathy, Thyromegaly Lungs: Normal Respiratory Effort, Decreased Breath Sounds, Crackles, Rhonchi Cardiovascular: Regular Rate, Regular Rhythm, Systolic Murmur GI/Abdominal Exam: Normal Bowel Sounds, Soft, Non-Tender, No Distention. No: Guarding, Rebound (Male) Exam: Deferred Rectal (Males) Exam: Deferred Back Exam: Normal Inspection Extremities: Normal Inspection, No Pedal Edema Skin: Warm, Dry, Intact Neurological: Other (do not talk) Neuro Extensive - Mental Status: Alert, Opens Eyes to Commands Psychiatric: Alert, Normal Affect - Patient Data Result Diagrams: 06/20/17 21:00 06/20/17 21:00 *Q Meaningful Use (ADM) - VTE *Q VTE Criteria *Q: - Stroke *Q Stroke Criteria *Q: - AMI *Q AMI Criteria *Q: - Problem List (1) Aspiration pneumonia SNOMED Code(s): 079243655 ICD Code: J69.0 - PNEUMONITIS DUE TO INHALATION OF FOOD AND VOMIT Status: Acute Current Visit: Yes (2) Acute bacterial bronchitis SNOMED Code(s): 322872012 ICD Code: J20.8 - ACUTE BRONCHITIS DUE TO OTHER SPECIFIED ORGANISMS; B96.89 - OTH BACTERIAL AGENTS THE CAUSE OF DISEASES CLASSD [id number] Status: Acute Current Visit: No Problem List Initiated/Reviewed/Updated: Yes Assessment/Plan Comment:: This is a 82 y/o Male resident of a alf brought to ED because of Increased shortness of breath, he is on 2L supplemental oxygen and with that o2 sat 92% and normally at senior living he is not on Oxygen. CXR also shows B/L infiltrates. Pt is on Honey thick fluid and mechanical soft diet Impreesion and Plan: 1. Increased shortness of breath: This is likely from Aspiration Pneumonia/ Bronchitis -Will follw Blood culture drawn in ED -Will start Solumedrol 40 mg IV Q6 hrs -Will start him on IV Zosyn 3.375 mg q6 hrs -Will allos continue Duonebs -Wean supplemental oxygen as tolerated 2. Hypertension: BP in ED was elevated but he is not on anti-HTN medication at home, will start medication if BP persistently stay high. 3. Hyponatremia: This is likely from SSRI vs Lung pthology ( Pneumonia) - will lmit fluids to 1200 ml/24 hrs 4. Hypothyroidism: Will continue Levothyroxin 5. DVT Prophylaxis: Heparin 5000 units sq TID 6. GI prophylaxis: Protonix 40 mg IV push daily 7. Code status: Code 2
[2017-06-20] MEDS ORDERED: Acetaminophen 325 MG Tab PO PRN (23:09)
[2017-06-20] MEDS ORDERED: Docusate Sodium 100 MG Cap PO PRN (23:09)
[2017-06-20] MEDS ORDERED: Glycerin Pediatric 1.2 GM Supp RECTAL PRN (23:30)
[2017-06-20] MEDS ORDERED: Bacitracin/Neomycin/Polymyxin B Oint 28.4 GM Tube TOP PRN (23:30)
[2017-06-20] MEDS ORDERED: ALENDRONATE 70 MG PO SCH (23:30)
[2017-06-20] MEDS ORDERED: Nitroglycerin 0.4 MG Tab.SL SL PRN (23:30)
[2017-06-20] MEDS ORDERED: diphenhydrAMINE 25 MG Tab PO PRN (23:30)
[2017-06-21] MEDS: Heparin Sodium 5,000 Units/ML Vial SUBCUT SCH ×5 (00:36→22:37)
[2017-06-21] MEDS: Albuterol/Ipratropium 3.0-0.5 MG/3 ML Neb Soln NEB SCH ×7 (00:36→22:37)
[2017-06-21] MEDS: Piperacillin/Tazobactam 3.375 GM in Sodium Chloride 0.9% 100 ML IV SCH ×3 (00:42→12:33)
[2017-06-21] MEDS: methylPREDNISolone Sodium Succinate 40 MG/1 ML SDV IVPUSH SCH ×3 (06:27→17:44)
[2017-06-21] MEDS: Levothyroxine 100 MCG Tab PO SCH (06:33)
[2017-06-21] MEDS ORDERED: LACTOSE REDUCED FOOD PO SCH (09:00)
[2017-06-21] MEDS ORDERED: BICALUTAMIDE 50 MG PO SCH (09:00)
[2017-06-21] MEDS: Pantoprazole 40 MG Vial IVPUSH SCH (09:08)
[2017-06-21] MEDS: Multivitamins, Therapeutic with Minerals Tab PO SCH (09:10)
[2017-06-21] MEDS: QUEtiapine 25 MG Tab PO SCH (09:10)
[2017-06-21] MEDS: hydrOXYzine HCl 25 MG Tab PO SCH ×3 (09:10→21:41)
[2017-06-21] MEDS: Lidocaine 5% 700 MG Patch TOP SCH (09:15)
--- NOTE | 2017-06-21 13:21 | PCM.PN ---
- General Info Date of Service: 06/21/17 Admission Dx/Problem (Free Text): Increasing shortness of breath secondary to aspiration Pneumonia Subjective Update: He looks better today, he eat his pureed meals and drink Honey thick liquids. He does not talk Functional Status: Reports: Pain Controlled, Tolerating Diet - Review of Systems HEENT: Reports: Sinus Congestion Psychiatric: Reports: No Symptoms Systems Review Comment:: unable to obtain due to patient factor, he does not talk - Patient Data Vitals - Most Recent: Last Vital Signs Temp 36.4 C 06/21/17 11:00 Pulse 97 06/21/17 11:00 Resp 20 06/21/17 11:00 BP 127/93 H 06/21/17 11:00 Pulse Ox 94 L 06/21/17 11:00 Weight - Most Recent: 76.657 kg I&O - Last 24 Hours: Intake & Output 06/20/17 06/21/17 06/21/17 22:59 06:59 14:59 Intake Total 10 552 Balance 10 552 Med Orders - Current: Current Medications Acetaminophen (Tylenol) 650 mg PO Q4H PRN PRN Reason: Pain (mild 1-3 )/fever Albuterol/Ipratropium (Duoneb 3.0-0.5 Mg/3 Ml) 3 ml NEB Q4HRRT [facility] Last Admin: 06/21/17 12:31 Dose: 3 ml Aspirin (Aspirin) 81 mg PO BEDTIME [facility] Clopidogrel Bisulfate (Plavix) 75 mg PO BEDTIME [facility] Diphenhydramine HCl (Benadryl) 25 mg PO BEDTIME PRN PRN Reason: Itching Docusate Sodium (Colace) 100 mg PO DAILY PRN PRN Reason: Constipation Glycerin (Sani-Supp Pediatric) 1.2 gm RECTAL ASDIRECTED PRN PRN Reason: Constipation Heparin Sodium (Porcine) (Heparin Sodium) 5,000 units SUBCUT Q8H [facility] Last Admin: 06/21/17 06:32 Dose: Not Given Hydroxyzine HCl (Atarax) 25 mg PO TID [facility] Last Admin: 06/21/17 09:10 Dose: 25 mg Piperacillin Sod/Tazobactam (Sod 3.375 gm/ Sodium Chloride) 100 mls @ 200 mls/ hr IV Q6H [facility] Last Admin: 06/21/17 12:33 Dose: 200 mls/hr Levothyroxine Sodium (Synthroid) 100 mcg PO ACBREAKFAST [facility] Last Admin: 06/21/17 06:33 Dose: 100 mcg Lidocaine (Lidoderm 5%) 700 mg TOP DAILY [facility] Last Admin: 06/21/17 09:15 Dose: 700 mg Methylprednisolone Sodium Succinate (Solu-Medrol) 40 mg IVPUSH Q6H [facility] Last Admin: 06/21/17 12:31 Dose: 40 mg Miscellaneous Information (Remove Patch) 1 ea TRDERM DAILY@2100 [facility] Multivitamins/Minerals (Vitamins And Minerals) 1 tab PO DAILY [facility] Last Admin: 06/21/17 09:10 Dose: 1 tab Neomycin/Polymyxin/Bacitracin (Triple Antibiotic Oint) 0 gm TOP ASDIRECTED PRN PRN Reason: Other Nitroglycerin (Nitrostat) 0.4 mg SL ASDIRECTED PRN PRN Reason: Chest Pain Bicalutamide [ (Casodex] 50mg) 1 tab PO DAILY [facility] Pantoprazole Sodium (Protonix Iv) 40 mg IVPUSH DAILY [facility] Last Admin: 06/21/17 09:08 Dose: 40 mg Quetiapine Fumarate (Seroquel) 50 mg PO DAILY [facility] Last Admin: 06/21/17 09:10 Dose: 50 mg Quetiapine Fumarate (Seroquel) 100 mg PO BEDTIME [facility] Senna/Docusate Sodium (Senna Plus) 1 tab PO BID [facility] Last Admin: 06/21/17 09:10 Dose: 1 tab Discontinued Medications Albuterol/Ipratropium (Duoneb 3.0-0.5 Mg/3 Ml) 3 ml NEB ONETIME ONE Stop: 06/20/17 21:22 Last Admin: 06/20/17 21:24 Dose: 3 ml Alendronate [Fosamax (] 70mg) 1 each PO Q7D [facility] - Exam Quality Assessment: Supplemental Oxygen, DVT Prophylaxis. No: Urine Catheter General: Alert, Cooperative, No Acute Distress. No: Oriented HEENT: Pupils Equal, Mucous Membr. Moist/[place] Neck: Supple, No JVD. No: Lymphadenopathy Lungs: Clear to Auscultation, Normal Respiratory Effort, Crackles Cardiovascular: Regular Rate, Regular Rhythm, Murmurs GI/Abdominal Exam: Normal Bowel Sounds, No Distention. No: Guarding, Rebound (Male) Exam: Deferred Back Exam: Normal Inspection Extremities: Normal Inspection, No Pedal Edema Skin: Warm, Dry, Intact Neurological: No New Focal Deficit Psy/Mental Status: Alert - Problem List & Annotations (1) Aspiration pneumonia SNOMED Code(s): 273202007 Code(s): J69.0 - PNEUMONITIS DUE TO INHALATION OF FOOD AND VOMIT Status: Acute Current Visit: Yes (2) Acute bacterial bronchitis SNOMED Code(s): 790555471 Code(s): J20.8 - ACUTE BRONCHITIS DUE TO OTHER SPECIFIED ORGANISMS; B96.89 - OTH BACTERIAL AGENTS THE CAUSE OF DISEASES CLASSD ELSWHR Status: Acute Current Visit: No - Problem List Review Problem List Initiated/Reviewed/Updated: Yes - My Orders Last 24 Hours: My Active Orders 06/20/17 23:15 Heparin Sodium 5,000 units SUBCUT Q8H 06/20/17 23:17 Antiembolic Devices [RC] LAZ Hose [Antiembolic Hose] [OM.PC] Routine 06/20/17 23:25 RT Aerosol Therapy [RC] ASDIRECTED 06/20/17 23:30 Albuterol/Ipratropium [DuoNeb 3.0-0.5 MG/3 ML] 3 ml NEB Q4HRRT Bacitracin/Neomycin/Polymyxin [Triple Antibiotic Oint] 0 gm TOP ASDIRECTED PRN Glycerin [Sani-Supp Pediatric] 1.2 gm RECTAL ASDIRECTED PRN Nitroglycerin [Nitrostat] 0.4 mg SL ASDIRECTED PRN diphenhydrAMINE [Benadryl] 25 mg PO BEDTIME PRN 06/21/17 00:00 Piperacillin/Tazobactam [Zosyn] 3.375 gm Sodium Chloride 0.9% [Normal Saline] 100 ml IV Q6H 06/21/17 06:00 Levothyroxine [Synthroid] 100 mcg PO ACBREAKFAST methylPREDNISolone Sod Succ [Solu-MEDROL] 40 mg IVPUSH Q6H 06/21/17 09:00 Bicalutamide [Casodex] 1 tab PO DAILY Docusate Sodium/Sennosides [Senna Plus] 1 tab PO BID Lidocaine 5% [Lidoderm 5%] 700 mg TOP DAILY Multivitamins/Minerals [Vitamins and Minerals] 1 tab PO DAILY Pantoprazole [ProTONIX IV] 40 mg IVPUSH DAILY QUEtiapine [SEROquel] 50 mg PO DAILY hydrOXYzine HCl [Atarax] 25 mg PO TID 06/21/17 21:00 Aspirin 81 mg PO BEDTIME Clopidogrel [Plavix] 75 mg PO BEDTIME QUEtiapine [SEROquel] 100 mg PO BEDTIME Remove Patch 1 ea TRDERM DAILY@2100 06/21/17 Breakfast Pureed Diet [DIET] Thickened Liquids [DIET] - Plan Plan:: This is a 82 y/o Male resident of a [facility] brought to ED because of Increased shortness of breath, he is on 2L supplemental oxygen and with that o2 sat 92% and normally at [facility] he is not on Oxygen. CXR also shows B/L infiltrates. Pt is on Honey thick fluid and mechanical soft diet Impreesion and Plan: 1. Increased shortness of breath: This is likely from Aspiration Pneumonia/ Bronchitis -Blood culture drawn in ED growing gram positive Cocci in Clusters -Will continue Solumedrol 40 mg IV Q6 hrs -Will stop IV Zosyn and start Vancomycin 1.5 g X 1 dose followed by pharmacy to dose and check the level, Follow sensitivity once available -Will continue Duonebs -Wean supplemental oxygen as tolerated 2. Hypertension: BP in ED was elevated but acceptable in medical floor , he is not on anti-HTN medication at home, will start medication if BP persistently stay high. 3. Hyponatremia: This is likely from SSRI vs Lung pthology ( Pneumonia) - will lmit fluids to 1200 ml/24 hrs -Recheck labs in AM 4. Hypothyroidism: Will continue Levothyroxin 5. Bactremia with gram positive Cocci: Blood culture [place] on 06/20/17 showing growth of Gram positive Cocci in Clusters, will stop zosyn and start him on Vancomycin 6. DVT Prophylaxis: Heparin 5000 units sq TID 7. GI prophylaxis: Protonix 40 mg IV push daily 8. Code status: Code 2
[2017-06-21] MEDS ORDERED: Vancomycin 1.5 GM in Sodium Chloride 0.9% 500 ML IV ONE (15:00)
[2017-06-21] MEDS: Clopidogrel 75 MG Tab PO SCH (21:41)
[2017-06-21] MEDS: QUEtiapine 100 MG Tab PO SCH (21:41)
[2017-06-21] MEDS: Aspirin 81 MG Tab.Chew PO SCH (21:41)
[2017-06-22] MEDS: methylPREDNISolone Sodium Succinate 40 MG/1 ML SDV IVPUSH SCH ×5 (00:05→23:12)
[2017-06-22] MEDS: Albuterol/Ipratropium 3.0-0.5 MG/3 ML Neb Soln NEB SCH ×6 (04:52→23:12)
[2017-06-22] MEDS: Levothyroxine 100 MCG Tab PO SCH (05:49)
[2017-06-22 07:05] LABS: CHLORIDE,CL 98 mmol/L (101-111); SODIUM,NA 133 mmol/L (135-145)
[2017-06-22] MEDS: Heparin Sodium 5,000 Units/ML Vial SUBCUT SCH (07:34)
[2017-06-22] MEDS: hydrOXYzine HCl 25 MG Tab PO SCH ×3 (08:45→20:13)
[2017-06-22] MEDS: Multivitamins, Therapeutic with Minerals Tab PO SCH (08:46)
[2017-06-22] MEDS: QUEtiapine 25 MG Tab PO SCH (08:46)
[2017-06-22] MEDS: Lidocaine 5% 700 MG Patch TOP SCH (08:46)
[2017-06-22] MEDS: Pantoprazole 40 MG Vial IVPUSH SCH (08:46)
--- NOTE | 2017-06-22 12:51 | PCM.PN ---
- General Info Date of Service: 06/22/17 Admission Dx/Problem (Free Text): Increasing shortness of breath secondary to aspiration Pneumonia and bactremia with gram positive Cocci in clusters Subjective Update: He looks better today, he eat his pureed meals and drink Honey thick liquids. He does not talk but more alert Functional Status: Reports: Pain Controlled, Tolerating Diet, Urinating - Review of Systems Systems Review Comment:: Unable to obtain due to pt factor, he does not talk - Patient Data Vitals - Most Recent: Last Vital Signs Temp 36.9 C 06/22/17 10:12 Pulse 96 06/22/17 10:12 Resp 20 06/22/17 10:12 BP 143/69 H 06/22/17 10:12 Pulse Ox 95 06/22/17 10:12 Weight - Most Recent: 76.657 kg I&O - Last 24 Hours: Intake & Output 06/21/17 06/22/17 06/22/17 22:59 06:59 14:59 Intake Total 534 Balance 534 Lab Results Last 24 Hours: Laboratory Results - last 24 hr 06/22/17 Range/Units 06:00 Sodium 133 L (135-145) mmol/L Potassium 4.3 (3.6-5.0) mmol/L Chloride 98 L (101-111) mmol/L Carbon Dioxide 23.0 (21.0-31.0) mmol/L Anion Gap 16.3 BUN 25 H (7-18) mg/dL Creatinine 0.9 (0.6-1.3) mg/dL Est Cr Clr Drug Dosing 49.17 mL/min Estimated GFR (MDRD) > 60 Glucose 147 H (74-105) mg/dL Calcium 8.9 (8.4-10.2) mg/dl Med Orders - Current: Current Medications Acetaminophen (Tylenol) 650 mg PO Q4H PRN PRN Reason: Pain (mild 1-3 )/fever Albuterol/Ipratropium (Duoneb 3.0-0.5 Mg/3 Ml) 3 ml NEB Q4HRRT [facility] Last Admin: 06/22/17 08:34 Dose: 3 ml Aspirin (Aspirin) 81 mg PO BEDTIME [facility] Last Admin: 06/21/17 21:41 Dose: 81 mg Clopidogrel Bisulfate (Plavix) 75 mg PO BEDTIME [facility] Last Admin: 06/21/17 21:41 Dose: 75 mg Diphenhydramine HCl (Benadryl) 25 mg PO BEDTIME PRN PRN Reason: Itching Docusate Sodium (Colace) 100 mg PO DAILY PRN PRN Reason: Constipation Glycerin (Sani-Supp Pediatric) 1.2 gm RECTAL ASDIRECTED PRN PRN Reason: Constipation Heparin Sodium (Porcine) (Heparin Sodium) 5,000 units SUBCUT Q8H [facility] Last Admin: 06/22/17 07:34 Dose: 5,000 units Hydroxyzine HCl (Atarax) 25 mg PO TID [facility] Last Admin: 06/22/17 08:45 Dose: 25 mg Vancomycin HCl 1.25 gm/ Sodium (Chloride) 250 mls @ 167 mls/hr IV Q24H [facility] Levothyroxine Sodium (Synthroid) 100 mcg PO ACBREAKFAST [facility] Last Admin: 06/22/17 05:49 Dose: 100 mcg Lidocaine (Lidoderm 5%) 700 mg TOP DAILY [facility] Last Admin: 06/22/17 08:46 Dose: 700 mg Methylprednisolone Sodium Succinate (Solu-Medrol) 40 mg IVPUSH Q6H [facility] Last Admin: 06/22/17 05:49 Dose: 40 mg Miscellaneous Information (Remove Patch) 1 ea TRDERM DAILY@2100 [facility] Last Admin: 06/21/17 23:00 Dose: 1 ea Multivitamins/Minerals (Vitamins And Minerals) 1 tab PO DAILY [facility] Last Admin: 06/22/17 08:46 Dose: 1 tab Nitroglycerin (Nitrostat) 0.4 mg SL ASDIRECTED PRN PRN Reason: Chest Pain Bicalutamide [ (Casodex] 50mg) 1 tab PO DAILY [facility] Pantoprazole Sodium (Protonix Iv) 40 mg IVPUSH DAILY [facility] Last Admin: 06/22/17 08:46 Dose: 40 mg Quetiapine Fumarate (Seroquel) 50 mg PO DAILY [facility] Last Admin: 06/22/17 08:46 Dose: 50 mg Quetiapine Fumarate (Seroquel) 100 mg PO BEDTIME [facility] Last Admin: 06/21/17 21:41 Dose: 100 mg Senna/Docusate Sodium (Senna Plus) 1 tab PO BID [facility] Last Admin: 06/22/17 08:46 Dose: 1 tab Vancomycin HCl (Pharmacy To Dose - Vancomycin) 1 dose .XX ASDIRECTED [facility] Discontinued Medications Albuterol/Ipratropium (Duoneb 3.0-0.5 Mg/3 Ml) 3 ml NEB ONETIME ONE Stop: 06/20/17 21:22 Last Admin: 06/20/17 21:24 Dose: 3 ml Piperacillin Sod/Tazobactam (Sod 3.375 gm/ Sodium Chloride) 100 mls @ 200 mls/ hr IV Q6H [facility] Last Admin: 06/21/17 12:33 Dose: 200 mls/hr Vancomycin HCl 1.5 gm/ Sodium (Chloride) 500 mls @ 334 mls/hr IV ONETIME ONE Stop: 06/21/17 16:29 Last Admin: 06/21/17 15:48 Dose: 334 mls/hr Neomycin/Polymyxin/Bacitracin (Triple Antibiotic Oint) 0 gm TOP ASDIRECTED PRN PRN Reason: Other Alendronate [Fosamax (] 70mg) 1 each PO Q7D [facility] - Exam Quality Assessment: Supplemental Oxygen, DVT Prophylaxis. No: Urine Catheter General: Alert, Cooperative, No Acute Distress HEENT: Pupils Equal, Mucous Membr. Moist/[place] Neck: Supple, No JVD. No: Lymphadenopathy Lungs: Crackles, Rhonchi. No: Wheezing Cardiovascular: Regular Rate, Regular Rhythm, Murmurs GI/Abdominal Exam: Normal Bowel Sounds, Soft, No Organomegaly. No: Guarding, Rebound (Male) Exam: Deferred Back Exam: Normal Inspection Extremities: Normal Inspection, No Pedal Edema Skin: Warm, Intact Neurological: No New Focal Deficit Psy/Mental Status: Alert, Normal Affect, Normal Mood - Problem List & Annotations (1) Aspiration pneumonia SNOMED Code(s): 935981567 Code(s): J69.0 - PNEUMONITIS DUE TO INHALATION OF FOOD AND VOMIT Status: Acute Current Visit: Yes (2) Acute bacterial bronchitis SNOMED Code(s): 867712260 Code(s): J20.8 - ACUTE BRONCHITIS DUE TO OTHER SPECIFIED ORGANISMS; B96.89 - OTH BACTERIAL AGENTS THE CAUSE OF DISEASES CLASSD ELSWHR Status: Acute Current Visit: No - Problem List Review Problem List Initiated/Reviewed/Updated: Yes - My Orders Last 24 Hours: My Active Orders 06/21/17 15:15 Vancomycin Pharmacy to Dose [Pharmacy to Dose - Vancomycin] 1 dose .XX ASDIRECTED 06/21/17 21:00 Aspirin 81 mg PO BEDTIME Clopidogrel [Plavix] 75 mg PO BEDTIME QUEtiapine [SEROquel] 100 mg PO BEDTIME Remove Patch 1 ea JESSI DAILY@2100 - Plan Plan:: This is a 82 y/o Male resident of a senior living brought to ED because of Increased shortness of breath, he is on 2L supplemental oxygen and with that o2 sat 92% and normally at retirement he is not on Oxygen. CXR also shows B/L infiltrates. Pt is on Honey thick fluid and mechanical soft diet Impreesion and Plan: 1. Increased shortness of breath: This is likely from Aspiration Pneumonia/ Bronchitis -Blood culture drawn in ED ( 11/18 growing gram positive Cocci in Clusters -Will continue Solumedrol 40 mg IV Q6 hrs -Will CONTINUE Vancomycin ( I HAVE GIVEN 1.5 g X 1 dose) AND NOW pharmacy to dose and check the level, -Follow sensitivity once available -Will continue Duonebs -Wean supplemental oxygen as tolerated 2. Hypertension: BP in ED was elevated but acceptable in medical floor , he is not on anti-HTN medication at home, will start medication if BP persistently stay high. 3. Hyponatremia: This is likely from SSRI vs Lung pthology ( Pneumonia) - will lmit fluids to 1200 ml/24 hrs -Recheck labs in AM -sODIUM IS slowly improving , sodium today was at 133 meq/L 4. Hypothyroidism: Will continue Levothyroxin 5. Bactremia with gram positive Cocci: Blood culture [place] on 06/20/17 showing growth of Gram positive Cocci in Clusters, will continue him on Vancomycin 1.25 gm q 24 hrs ( dose and level monitored by Pharmacy) 6. DVT Prophylaxis: Heparin 5000 units sq TID 7. GI prophylaxis: Protonix 40 mg IV push daily 8. Code status: Code 2
[2017-06-22] MEDS: QUEtiapine 100 MG Tab PO SCH (20:13)
[2017-06-22] MEDS: Clopidogrel 75 MG Tab PO SCH (20:13)
[2017-06-22] MEDS: Aspirin 81 MG Tab.Chew PO SCH (20:13)
[2017-06-23] MEDS: Albuterol/Ipratropium 3.0-0.5 MG/3 ML Neb Soln NEB SCH ×7 (03:17→22:41)
[2017-06-23] MEDS: Levothyroxine 100 MCG Tab PO SCH (05:08)
[2017-06-23] MEDS: methylPREDNISolone Sodium Succinate 40 MG/1 ML SDV IVPUSH SCH ×3 (05:08→17:51)
[2017-06-23] MEDS: QUEtiapine 25 MG Tab PO SCH (08:31)
[2017-06-23] MEDS: Multivitamins, Therapeutic with Minerals Tab PO SCH (08:31)
[2017-06-23] MEDS: Pantoprazole 40 MG Vial IVPUSH SCH (08:31)
[2017-06-23] MEDS: hydrOXYzine HCl 25 MG Tab PO SCH ×3 (08:31→22:39)
[2017-06-23] MEDS: Lidocaine 5% 700 MG Patch TOP SCH (08:31)
[2017-06-23] MEDS: Ciprofloxacin in D5W 400 MG in Premix Bag 1 BAG IV SCH ×4 (13:27→22:38)
[2017-06-23] MEDS: QUEtiapine 100 MG Tab PO SCH (22:39)
[2017-06-23] MEDS: Aspirin 81 MG Tab.Chew PO SCH (22:40)
[2017-06-23] MEDS: Clopidogrel 75 MG Tab PO SCH (22:40)
[2017-06-24] MEDS: methylPREDNISolone Sodium Succinate 40 MG/1 ML SDV IVPUSH SCH ×3 (00:35→11:15)
[2017-06-24] MEDS: Albuterol/Ipratropium 3.0-0.5 MG/3 ML Neb Soln NEB SCH ×4 (03:50→15:39)
[2017-06-24] MEDS: Levothyroxine 100 MCG Tab PO SCH (06:23)
--- NOTE | 2017-06-24 08:56 | PN ---
DATE: 06/23/2017 HISTORY OF PRESENT ILLNESS: Mr. Castellanos is an 82-year-old gentleman who is a [facility] client. He has past history of hypertension, profound MRDD, bipolar disorder, Parkinson's disease, prostate cancer, and cerebrovascular disease. He had been seen in the clinic on 06/19 for progressive shortness of breath. He had been given Solu-Medrol and returned to [facility] on doxycycline for 10 days and Medrol Dosepak. He presented back to the emergency room in the evening of the same day with increasing shortness of breath, which had not improved. Chest x- ray showed bilateral patchy infiltrates, and he was admitted for possible aspiration pneumonia. He has a history of previous aspiration pneumonia. IMAGING: Review of admission workup showed single-view chest x-ray, which was limited due to the patient's positioning and was a suboptimal study. There was vascular congestion seen. LABORATORY DATA: Lab work at the time of admission showed a white count of 22,000 and hemoglobin and hematocrit of 12 and 34.7. Sodium 130, potassium 4.7, BUN and creatinine were 27 and 1.0 with a GFR of more than 60. LFTs were unremarkable. MICROBIOLOGY: One set of blood cultures was drawn, and both aerobic blood cultures were positive for Staphylococcus haemolyticus. MEDICATIONS: Review of his medications show that he has been on vancomycin. The organism is resistant to penicillins, and we have discontinued the vancomycin and started him on ciprofloxacin IV 400 mg every 12 hours. CLINICAL DATA: Review of his clinical data shows that he is taking in fluids. He is voiding and moving his bowels. He is tolerating his meals. Vital signs have been stable, and he remains afebrile. PHYSICAL EXAMINATION: General: He is lying in the left lateral recumbent position in bed. He is nonverbal, but alert. He will hold the examiner's hand tightly, but otherwise has no meaningful conversation. He did not appear to be in any distress. Vital Signs: Blood pressure 140/66, pulse 83, respiratory rate 20, oxygen saturation 98% on 2 L, and he is afebrile. HEENT: Unremarkable. Chest: Shows diminished bilateral breath sounds without wheezes, rales, or rhonchi. Heart: Shows regular rate and rhythm. Abdomen: Soft. Extremities: Show no edema. PLAN: We will continue the present management with changes as above and order repeat lab work for Friday the . At this point, we will need to continue IV antibiotics because of the positive blood cultures. We are awaiting for Anesthesia to see if a PICC line can be placed, and he will most likely be admitted to swing bed at [facility]. [facility] will not be able to give him the antibiotics. No other changes are made today. [facility] /[id number]
[2017-06-24] MEDS: QUEtiapine 25 MG Tab PO SCH (09:15)
[2017-06-24] MEDS: hydrOXYzine HCl 25 MG Tab PO SCH ×2 (09:15→14:05)
[2017-06-24] MEDS: Multivitamins, Therapeutic with Minerals Tab PO SCH (09:16)
[2017-06-24] MEDS: Pantoprazole 40 MG Vial IVPUSH SCH (09:16)
[2017-06-24] MEDS: Lidocaine 5% 700 MG Patch TOP SCH (09:18)
[2017-06-24] MEDS: Ciprofloxacin in D5W 400 MG in Premix Bag 1 BAG IV SCH ×2 (09:36)
--- NOTE | 2017-06-24 13:25 | CR ---
Clinical history: 82-year-old male right arm PICC catheter placement. Interpretation: Single AP view chest and right arm confirms the placement of long-arm catheter on the right but the tip courses approximately 3 cm cephalad presumably in the internal jugular vein on the right. Note: Location catheter discussed with nurse tobacco farmworker (Felice Hartmann) at 1325 hour.
--- NOTE | 2017-06-24 13:41 | CR ---
Clinical history: 82-year-old male PICC line placement. Interpretation: The long arm catheter, on the right, has been "pulled back and readvanced", now with tip directed from the distal right subclavian down into the ipsilateral right axilla (approximately 7 .5 cm). Position discussed with nurse roll form operator (Felice Donaldson
[2017-06-24 15:43] VITALS: BP 119/74
[2017-06-25] MEDS ORDERED: BICALUTAMIDE 50 MG PO SCH (09:00)
--- NOTE | 2017-06-28 02:36 | DISCH ---
DISCHARGE DIAGNOSES: 1. Positive blood cultures for Staphylococcus haemolyticus. 2. Increasing shortness of breath with wheezing, cannot exclude aspiration pneumonitis. 3. Hyponatremia. 4. Anemia. Remainder of past medical history per admission history and physical. BRIEF HISTORY OF PRESENT ILLNESS: Mr. Castellanos is an 82-year-old gentleman who is a [facility] client. He was seen in clinic on 05/19 for progressive shortness of breath. At that time, he was placed on doxycycline for 10 days and a Medrol Dosepak. He presented back to the emergency room on the evening of the same day with increasing shortness of breath, which had not improved. Chest x-ray showed patchy bilateral infiltrates, and he was admitted for possible aspiration pneumonia with a previous history of aspiration pneumonia. PERTINENT LABS AND X-RAYS: Chest x-ray done at the time of admission was limited to the patient's positioning. It was a suboptimal study. There was some vascular congestion seen. A second chest x-ray was placed on 06/24 following the placement of a PICC catheter. The catheter was repositioned based on placement. CBC on the day of admission showed an elevated white count of 22,400 with 73% neutrophils and 15% bands and hemoglobin and hematocrit were 12 and 34.7. Chemistry showed sodium of 130 and BUN and creatinine of 27 and 1.0 with a GFR of more than 60. LFTs were unremarkable. Two sets of blood cultures were drawn at the time of admission, and both sets were positive for Staphylococcus haemolyticus. HOSPITAL COURSE: Mr. Castellanos was admitted as an acute inpatient for possible aspiration pneumonia based on clinical findings and previous history. He was started on Zosyn 3.375 g IV every 6 hours. He was also started on Solu-Medrol and nebulized bronchodilator therapy. Later, vancomycin was added to the regimen. Subcutaneous heparin was used for VTE prophylaxis, and his usual medications were continued. When positive blood cultures returned showing staphylococcal organism, the vancomycin and Zosyn were discontinued, and he was started on Cipro 400 mg IV twice a day, which will be continued in swing bed. Review of his clinical data showed he was taking in fluids. He was voiding and moving his bowels. He was tolerating 100% of his meals. Vital signs were stable, and he remained afebrile throughout the admission. PHYSICAL EXAMINATION: General: On the day of discharge from acute and admission to swing bed, he remained hemodynamically stable. He was lying comfortably in bed. He was nonverbal and would hold the examiner's hand and make some sounds, but does not participate in the visit. He appears to be comfortable and in no distress. Vital Signs: Blood pressure 119/74, pulse 72, respiratory rate 20, and oxygen saturation 98% on 1 to 2 L nasal cannula, and he was afebrile. HEENT: Unremarkable. ENT was clear. Chest: Showed diminished bilateral breath sounds without any active wheezes, rales, or rhonchi. Heart: Showed regular rate and rhythm. Abdomen: Soft and benign. Extremities: Showed no edema. Neurological: He was nonverbal. He could move his arms and legs. He required assistance for all other cares and was turned frequently by the staff. IMPRESSION: An 82-year-old gentleman with a history of aspiration pneumonia, presented with generalized wheezing and shortness of breath, which did not improve with outpatient therapy. He was admitted because of history of aspiration pneumonia. During this admission, blood cultures became positive for Staphylococcus haemolyticus, and he will now be discharged from acute care and admitted to swing bed to continue and complete IV antibiotic therapy. His usual medications will be continued, and he will be continued on ciprofloxacin 400 mg IV b.i.d. We will continue to taper his IV Solu-Medrol. His current medication list will be continued in swing bed, please see [facility] for complete list. CONDITION AT TIME OF DISCHARGE: Admission to swing bed, hemodynamically stable. CODE STATUS: During this admission, DNR/DNI. [facility] /[id number]
--- NOTE | 2017-06-30 10:53 | EKG ---
06/20/2017- ENRIQUE ORANTES - This is a standard 12-lead EKG showing normal sinus rhythm with a ventricular rate 92 beats per minute. No significant ST changes. Normal CA interval, QRS duration. [facility] /[id number]
== END 2017-06-24 16:30 | disposition swing bed (61) | DRG 178 ==
LOC: DL.ED 21:00 → DL.MS 22:10 → UNDOADMIN 22:10 → DL.MS 23:09
PROVIDERS: ADMIT Internal Medicine Nephrology; ATTEND Internal Medicine Nephrology
DX: J18.9 Pneumonia, unspecified organism (principal); J69.0 Pneumonitis due to inhalation of food and vomit; E87.1 Hypo-osmolality and hyponatremia; J20.8 Acute bronchitis due to other specified organisms; I10 Essential (primary) hypertension; E03.9 Hypothyroidism, unspecified; F81.9 Developmental disorder of scholastic skills, unspecified; G20 Parkinson's disease; C61 Malignant neoplasm of prostate; I67.9 Cerebrovascular disease, unspecified; B96.89 Other specified bacterial agents as the cause of diseases classified elsewhere; H54.7 Unspecified visual loss; H91.93 Unspecified hearing loss, bilateral; Z95.0 Presence of cardiac pacemaker; K59.09 Other constipation; R32 Unspecified urinary incontinence; M19.90 Unspecified osteoarthritis, unspecified site; F03.90 Unspecified dementia, unspecified severity, without behavioral disturbance, psychotic disturbance, mood disturbance, and anxiety; D64.9 Anemia, unspecified; Z79.82 Long term (current) use of aspirin; Z79.02 Long term (current) use of antithrombotics/antiplatelets; Z79.899 Other long term (current) drug therapy
CPT/HCPCS: 36415; 71010; 80048; 80053; 83605; 85025; 87040; 87077; 87186; 94640; 94640-76; 99284; 99285; A9270-GY; C9113; J0744; J1644; J2543; J2920; J3370; J7040; J7050

== ENCOUNTER 2017-06-24 16:33 | Inpatient (IN) | payer MEDICARE, MEDICAID ==
[2017-06-24] MEDS ORDERED: Bisacodyl 10 MG Supp RECTAL PRN (16:36)
[2017-06-24] MEDS ORDERED: Nitroglycerin 0.4 MG Tab.SL SL PRN (16:58)
[2017-06-24] MEDS ORDERED: Glycerin Pediatric 1.2 GM Supp RECTAL PRN (16:58)
--- NOTE | 2017-06-24 17:18 | CR ---
Clinical history: 82-year-old male follow-up PICC line placement and readjustment. Interpretation: AP film dated 24 June 2017 (1703 hours) reveals long-arm catheter, on the right still curved and directed down toward the right axilla along the lateral chest wall. Suggest it could be retracted or pulled back four (4) centimeters. Nurse marketing operations specialist (Felice Hartmann) notified 1720 hours. Large hiatus hernia middle mediastinum. Cardiac pacemaker (leads intact). No new signs of heart failure, lung mass, focal lobar atelectasis/collapse or segmental infiltrate.
--- NOTE | 2017-06-24 17:36 | PCM.PRNOTE ---
- Free Text/Narrative Note: Dr. Hammond requested a PICC line insertion for patient secondary to intermediate frame tender antibiotic administration. Discussed procedure with patient and power or assistant city attorney, POA provided telephone consent. It was agreed patient would benefit from a PICC line insertion. Complications, like infection and bleeding, were all discussed with patient and POA and POA agreed to the minimal risks of complications. Consent was obtained via telephone from POA. Pt was brought to pre-anesthesia procedure room. Equipment gathered and properly prepared for procedure. Using full sterile barrier (mask, gown, gloves), right arm antecubital area was prepped with chloroprep and drapes immediately after Joan RN placed tourniquet around right bicep. Using a 1% lidocaine solution, a skin wheel was placed at injection site. Using a 20 gauge IV catheter, the AC vein was accessed without difficulty. Safety needle was removed and a wire introducer was placed. At this point, the laceration was widened using a scalpel and dilator. Wire and IV catheter were removed without difficulty and a 5 namibian, 55 cm PICC catheter was threaded through the dilator to the originally measured 49 cm chela. X-ray here and obtained portable x-ray when was quickly read by on site radiologist (Dr. Verma). PICC line was seen heading up jugular. PICC line was withdrawn 3.5 cm and then advanced 8 cm , per radiologist suggestion. Second x-ray obtained. PICC line was seen making a sharp lateral turn towards axilla. At this time, PICC line was approved by Dr Hammond to be left in the suclavian at 37 cm. Follow up x-ray to confirm PICC line placement. Possible difficulties in proper placement of PICC catheter might be related to Pacing wires. Dilator, and PICC wire introducer were removed and PICC line secured in placed with provided peres, tegaderm, and tape. Upon PICC line being secured, both ports provide excellent blood return and flush easily. Patient returned to room and will be monitored by RN for complications. Zero complications during procedure.
[2017-06-24] MEDS ORDERED: Docusate Sodium 100 MG Cap PO PRN (17:38)
--- NOTE | 2017-06-24 17:53 | PCM.PRNOTE ---
- Free Text/Narrative Note: Radiologist indicated PICC line was in further than desired. He requested the catheter be pulled back 4 cm. After gathering the appropriate equipment, using sterile technique, the PICC line was pulled back from 36.5 cm to 32 cm. Catheter was secured in place with two tegaderms and tape. RN assisted with patient. Will continue to monitor.
[2017-06-24] MEDS: Albuterol/Ipratropium 3.0-0.5 MG/3 ML Neb Soln NEB SCH ×2 (18:15→22:56)
[2017-06-24] MEDS: methylPREDNISolone Sodium Succinate 40 MG/1 ML SDV IVPUSH SCH (20:00)
[2017-06-24] MEDS: QUEtiapine 100 MG Tab PO SCH (22:54)
[2017-06-24] MEDS: Clopidogrel 75 MG Tab PO SCH (22:54)
[2017-06-24] MEDS: Aspirin 81 MG Tab.Chew PO SCH (22:54)
[2017-06-24] MEDS: Ciprofloxacin in D5W 400 MG in Premix Bag 1 BAG IV SCH ×2 (22:55)
[2017-06-24] MEDS: hydrOXYzine HCl 25 MG Tab PO SCH (22:55)
[2017-06-24] MEDS: Remove Patch LIDODERM TRDERM SCH (22:56)
[2017-06-25] MEDS: Albuterol/Ipratropium 3.0-0.5 MG/3 ML Neb Soln NEB SCH ×6 (03:44→22:43)
[2017-06-25] MEDS: methylPREDNISolone Sodium Succinate 40 MG/1 ML SDV IVPUSH SCH ×3 (03:44→19:44)
[2017-06-25] MEDS: Levothyroxine 100 MCG Tab PO SCH (06:37)
[2017-06-25 07:01] LABS: CHLORIDE,CL 98 mmol/L (101-111); SODIUM,NA 132 mmol/L (135-145)
[2017-06-25] MEDS: Ciprofloxacin in D5W 400 MG in Premix Bag 1 BAG IV SCH ×4 (11:04→20:56)
[2017-06-25] MEDS: hydrOXYzine HCl 25 MG Tab PO SCH ×3 (11:05→20:59)
[2017-06-25] MEDS: Multivitamins, Therapeutic with Minerals Tab PO SCH (11:05)
[2017-06-25] MEDS: Pantoprazole 40 MG Vial IVPUSH SCH (11:05)
[2017-06-25] MEDS: Clopidogrel 75 MG Tab PO SCH (11:06)
[2017-06-25] MEDS: QUEtiapine 25 MG Tab PO SCH (11:06)
[2017-06-25] MEDS: Lidocaine 5% 700 MG Patch TOP SCH (11:06)
[2017-06-25] MEDS: BICALUTAMIDE 50 MG PO SCH (17:13)
[2017-06-25] MEDS: Aspirin 81 MG Tab.Chew PO SCH (20:59)
[2017-06-25] MEDS: QUEtiapine 100 MG Tab PO SCH (21:00)
[2017-06-25] MEDS: Remove Patch LIDODERM TRDERM SCH (22:30)
[2017-06-26] MEDS: Albuterol/Ipratropium 3.0-0.5 MG/3 ML Neb Soln NEB SCH ×5 (02:56→20:16)
[2017-06-26] MEDS: methylPREDNISolone Sodium Succinate 40 MG/1 ML SDV IVPUSH SCH ×3 (03:22→20:05)
[2017-06-26] MEDS: Levothyroxine 100 MCG Tab PO SCH (06:18)
[2017-06-26] MEDS: Multivitamins, Therapeutic with Minerals Tab PO SCH (09:30)
[2017-06-26] MEDS: hydrOXYzine HCl 25 MG Tab PO SCH ×3 (09:30→20:02)
[2017-06-26] MEDS: Clopidogrel 75 MG Tab PO SCH (09:31)
[2017-06-26] MEDS: QUEtiapine 25 MG Tab PO SCH (09:31)
[2017-06-26] MEDS: Lidocaine 5% 700 MG Patch TOP SCH (09:32)
[2017-06-26] MEDS: BICALUTAMIDE 50 MG PO SCH (09:33)
[2017-06-26] MEDS: Pantoprazole 40 MG Vial IVPUSH SCH (09:54)
[2017-06-26] MEDS: Ciprofloxacin in D5W 400 MG in Premix Bag 1 BAG IV SCH ×4 (10:00→20:55)
[2017-06-26] MEDS: Acetaminophen 325 MG Tab PO PRN (11:17)
[2017-06-26] MEDS: Aspirin 81 MG Tab.Chew PO SCH (20:02)
[2017-06-26] MEDS: QUEtiapine 100 MG Tab PO SCH (20:03)
[2017-06-26] MEDS: Sodium Chloride 0.9% 10 ML Syringe FLUSH PRN ×2 (20:54→21:55)
[2017-06-26] MEDS: Remove Patch LIDODERM TRDERM SCH (21:06)
[2017-06-27] MEDS: Sodium Chloride 0.9% 10 ML Syringe FLUSH PRN ×6 (03:42→23:18)
[2017-06-27] MEDS: methylPREDNISolone Sodium Succinate 40 MG/1 ML SDV IVPUSH SCH ×2 (03:50→23:11)
[2017-06-27] MEDS: Levothyroxine 100 MCG Tab PO SCH (06:28)
[2017-06-27] MEDS: Multivitamins, Therapeutic with Minerals Tab PO SCH (08:32)
[2017-06-27] MEDS: QUEtiapine 25 MG Tab PO SCH (08:37)
[2017-06-27] MEDS: Clopidogrel 75 MG Tab PO SCH (08:38)
[2017-06-27] MEDS: Pantoprazole 40 MG Tab.CR PO SCH (08:38)
[2017-06-27] MEDS: hydrOXYzine HCl 25 MG Tab PO SCH ×3 (08:39→22:11)
[2017-06-27] MEDS: Ciprofloxacin in D5W 400 MG in Premix Bag 1 BAG IV SCH ×4 (08:42→22:08)
[2017-06-27] MEDS: Albuterol/Ipratropium 3.0-0.5 MG/3 ML Neb Soln NEB SCH ×3 (09:13→22:21)
--- NOTE | 2017-06-27 10:53 | PCM.PN ---
- General Info Date of Service: 06/27/17 Subjective Update: The patient has mental retardation but reports no concerns. Discussing with the nursing staff, he is doing well. Occasionally this problem with flushing that the PICC line. - Review of Systems General: Reports: Weakness. Denies: Fever Pulmonary: Denies: Shortness of Breath Cardiovascular: Denies: Chest Pain Psychiatric: Reports: Confusion - Patient Data Vitals - Most Recent: Last Vital Signs Temp 36.1 C 06/27/17 07:00 Pulse 73 06/27/17 09:13 Resp 20 06/27/17 07:00 BP 133/71 06/27/17 07:00 Pulse Ox 93 L 06/27/17 07:00 Weight - Most Recent: 77.882 kg I&O - Last 24 Hours: Intake & Output 06/26/17 06/27/17 06/27/17 22:59 06:59 14:59 Intake Total 360 50 Balance 360 50 Nixon Results Last 24 Hours: Microbiology 06/25/17 06:30 Aerobic Blood Culture - Preliminary Blood - Venous - Lab Draw NO GROWTH AFTER 2 DAYS Anaerobic Blood Culture - Final 06/25/17 06:25 Aerobic Blood Culture - Preliminary Blood - Venous NO GROWTH AFTER 2 DAYS Anaerobic Blood Culture - Preliminary NO GROWTH AFTER 2 DAYS Med Orders - Current: Current Medications Acetaminophen (Tylenol) 650 mg PO Q4H PRN PRN Reason: Pain (mild 1-3 )/fever Last Admin: 06/26/17 11:17 Dose: 650 mg Albuterol/Ipratropium (Duoneb 3.0-0.5 Mg/3 Ml) 3 ml NEB TIDRT [facility] Last Admin: 06/27/17 09:13 Dose: 3 ml Aspirin (Aspirin) 81 mg PO BEDTIME [facility] Last Admin: 06/26/17 20:02 Dose: 81 mg Bisacodyl (Dulcolax) 10 mg RECTAL DAILY PRN PRN Reason: Constipation Clopidogrel Bisulfate (Plavix) 75 mg PO DAILY [facility] Last Admin: 06/27/17 08:38 Dose: 75 mg Diphenhydramine HCl (Benadryl) 25 mg PO BEDTIME PRN PRN Reason: Sleep Docusate Sodium (Colace) 100 mg PO DAILY PRN PRN Reason: Constipation Glycerin (Sani-Supp Pediatric) 1.2 gm RECTAL ASDIRECTED PRN PRN Reason: Constipation Hydroxyzine HCl (Atarax) 25 mg PO TID [facility] Last Admin: 06/27/17 08:39 Dose: 25 mg Ciprofloxacin/Dextrose 400 mg/ (Premix) 200 mls @ 200 mls/hr IV Q12HR [facility] Stop: 07/24/17 21:01 Last Admin: 06/27/17 08:42 Dose: 200 mls/hr Levothyroxine Sodium (Synthroid) 100 mcg PO ACBREAKFAST [facility] Last Admin: 06/27/17 06:28 Dose: 100 mcg Lidocaine (Lidoderm 5%) 700 mg TOP Q24H [facility] Last Admin: 06/26/17 09:32 Dose: 700 mg Methylprednisolone Sodium Succinate (Solu-Medrol) 40 mg IVPUSH BID [facility] Miscellaneous Information (Remove Patch) 1 ea TRDERM BEDTIME [facility] Last Admin: 06/26/17 21:06 Dose: 1 ea Multivitamins/Minerals (Vitamins And Minerals) 1 tab PO WITHBREAKFAST [facility] Last Admin: 06/27/17 08:32 Dose: 1 tab Nitroglycerin (Nitrostat) 0.4 mg SL Q5M PRN PRN Reason: Chest Pain Pantoprazole Sodium (Protonix) 40 mg PO DAILY [facility] Last Admin: 06/27/17 08:38 Dose: 40 mg Patient's Own Medication Bicalutamide 50mg 1 each PO DAILY [facility] Last Admin: 06/26/17 09:33 Dose: Not Given Quetiapine Fumarate (Seroquel) 50 mg PO DAILY [facility] Last Admin: 06/27/17 08:37 Dose: 50 mg Quetiapine Fumarate (Seroquel) 100 mg PO BEDTIME [facility] Last Admin: 06/26/17 20:03 Dose: 100 mg Senna/Docusate Sodium (Senna Plus) 1 tab PO BID [facility] Last Admin: 06/27/17 08:38 Dose: 1 tab Sodium Chloride (Saline Flush) 10 ml FLUSH ASDIRECTED PRN PRN Reason: IV Use Last Admin: 06/27/17 08:45 Dose: 10 ml Discontinued Medications Albuterol/Ipratropium (Duoneb 3.0-0.5 Mg/3 Ml) 3 ml NEB Q4HRRT [facility] Last Admin: 06/26/17 07:41 Dose: 3 ml Methylprednisolone Sodium Succinate (Solu-Medrol) 40 mg IVPUSH Q8H [facility] Last Admin: 06/27/17 03:50 Dose: 40 mg Pantoprazole Sodium (Protonix Iv) 40 mg IVPUSH DAILY [facility] Last Admin: 06/26/17 09:54 Dose: 40 mg - Exam General: Alert Neck: Supple Lungs: Decreased Breath Sounds Cardiovascular: Regular Rate, Regular Rhythm GI/Abdominal Exam: Normal Bowel Sounds, Soft, Non-Tender Extremities: No Pedal Edema, Other (Has upper extremity contractures) Skin: Warm, Dry Psy/Mental Status: Alert, Normal Mood - Problem List & Annotations (1) Bacteremia, coagulase-negative staphylococcal SNOMED Code(s): 449096700660, 321081222236631 Code(s): R78.81 - BACTEREMIA Status: Acute Priority: High Current Visit : No - Problem List Review Problem List Initiated/Reviewed/Updated: Yes - My Orders Last 24 Hours: My Active Orders 06/26/17 15:08 Central Line Assessment [RC] 06/26/17 20:09 Sodium Chloride 0.9% [Saline Flush] 10 ml FLUSH ASDIRECTED PRN 06/27/17 09:00 Pantoprazole [ProTONIX] 40 mg PO DAILY 06/27/17 21:00 methylPREDNISolone Sod Succ [Solu-MEDROL] 40 mg IVPUSH BID - Plan Plan:: The patient is an 82-year-old gentleman with mental retardation, Parkinsons disease, cerebrovascular disease. He was admitted on 20 June with progressive shortness of breath to acute care. Chest x-ray showed bilateral patchy infiltrates. There was also concern for possible aspiration component. Acute pneumonia possible aspiration related Blood culture grew Staphylococcus hemolyticus Treated with ciprofloxacin IV The patient has a PICC line Continue IV antibiotic for sepsis Acute COPD exacerbation Treat with DuoNeb, taper steroids further to twice a day dosing Hyponatremia This is mild well monitor periodically Leukocytosis Likely due to infection and steroids will monitor periodically
[2017-06-27] MEDS: BICALUTAMIDE 50 MG PO SCH (11:28)
[2017-06-27] MEDS: Lidocaine 5% 700 MG Patch TOP SCH (11:29)
[2017-06-27] MEDS: [UNRECOGNIZED DRUG - REMARK] PO SCH (14:31)
--- NOTE | 2017-06-27 15:00 | HP ---
REASON FOR ADMISSION TO SWING BED: IV antibiotic therapy for positive blood cultures with Staphylococcus haemolyticus. HISTORY OF PRESENT ILLNESS: Mr. Castellaons is an 82-year-old gentleman, who is a [facility] client. He was seen by his usual provider in the clinic on June 19 for progressive shortness of breath. At that time, he was found to have diffuse wheezing and was placed on doxycycline 100 mg twice a day for 10 days and a Medrol Dosepak. He did not improve and that evening he was brought to the emergency room with increasing shortness of breath and was admitted. Chest x- ray showed patchy infiltrates and he is admitted for possible aspiration pneumonia with a history of same. During that admission, 2 sets of blood cultures were found to be positive for Staphylococcus haemolyticus and he will now be admitted to swing bed to continue and complete an extended course of IV antibiotic therapy. PAST MEDICAL HISTORY: 1. Parkinson's disease. 2. Bipolar affective disorder. 3. Movement disorder. 4. Hypertension. 5. Osteoporosis with a T-score of -4.3 on DEXA in 2016. 6. Hypothyroidism. 7. History of prostate cancer 2009. 8. Cerebral vascular disease with history of TIA. 9. Cardiac pacemaker placed in June 2013. 10.Aspiration pneumonia in 2014. PAST SURGICAL HISTORY: 1. Left inguinal hernia repair. 2. Prostate biopsy 2009, which revealed the presence of prostate cancer. 3. Cardiac pacemaker placement in 2012. SOCIAL HISTORY: Mr. Castellanos is a [facility] client. Review of his clinic chart showed that he never smoked and does not drink alcohol. FAMILY HISTORY: Unavailable due to the fact that Mr. Castellanos is nonverbal and there was no staff with him to provide any further information. REVIEW OF SYSTEMS: While in acute care, he remained afebrile. Vital signs had been stable. There was no vomiting or diarrhea. No cough. His appetite was good, and he tolerated 100% of his meals. He requires assistance with all ADLs. PHYSICAL EXAMINATION: General: He is lying comfortably in bed. He is nonverbal, but he is alert and awake. He will hold the examiner's hand during the exam, but makes no purposeful movements or speech. Vital Signs: Blood pressure 119/74, pulse 89, respiratory rate 20, oxygen saturation 98% on 2 L, and he is afebrile. Weight 169 pounds. Height 5 feet 3 inches. HEENT: Unremarkable. ENT was clear. Sclerae nonicteric. Conjunctivae not injected. Mouth showed moist mucous membranes. Neck: No JVDs or bruits. Chest: Diminished bilateral breath sounds without wheezes, rales, or rhonchi. Heart: Regular rate and rhythm. Abdomen: Soft, benign. Extremities: No edema. Neurological: He was nonverbal. He could move his arms. He did not make any of other spontaneous movements, and required staff for all other ADLs. He will continue on his usual diet which is pureed diet with thickened liquids. LAZ hose were placed. He will be continued on his usual medications. Please see [facility] for complete list. He will continue on IV Cipro 400 mg twice a day. He will continue on nebulized bronchodilator therapy. Orders were written for repeat blood cultures and 2 sets were drawn. We will continue to monitor these for effectiveness of therapy. Repeat lab work will be ordered including a CBC and BMP. CONDITION AT TIME OF ADMISSION TO [facility] BED: Hemodynamically stable. CODE STATUS: Code status is DNR/DNI. [facility] /[id number]
[2017-06-27] MEDS: Aspirin 81 MG Tab.Chew PO SCH (22:11)
[2017-06-27] MEDS: QUEtiapine 100 MG Tab PO SCH (22:11)
[2017-06-27] MEDS: Remove Patch LIDODERM TRDERM SCH (22:42)
[2017-06-28] MEDS: Levothyroxine 100 MCG Tab PO SCH (05:53)
[2017-06-28 07:00] LABS: CHLORIDE,CL 98 mmol/L (101-111); SODIUM,NA 130 mmol/L (135-145)
[2017-06-28] MEDS: Albuterol/Ipratropium 3.0-0.5 MG/3 ML Neb Soln NEB SCH ×3 (08:15→21:17)
[2017-06-28] MEDS: Ciprofloxacin in D5W 400 MG in Premix Bag 1 BAG IV SCH ×4 (08:42→21:17)
[2017-06-28] MEDS: hydrOXYzine HCl 25 MG Tab PO SCH ×3 (08:42→21:17)
[2017-06-28] MEDS: Multivitamins, Therapeutic with Minerals Tab PO SCH (08:42)
[2017-06-28] MEDS: Lidocaine 5% 700 MG Patch TOP SCH (08:43)
[2017-06-28] MEDS: [UNRECOGNIZED DRUG - REMARK] PO SCH (08:44)
[2017-06-28] MEDS: Clopidogrel 75 MG Tab PO SCH (08:44)
[2017-06-28] MEDS: Pantoprazole 40 MG Tab.CR PO SCH (08:44)
[2017-06-28] MEDS: QUEtiapine 25 MG Tab PO SCH (08:45)
[2017-06-28] MEDS: methylPREDNISolone Sodium Succinate 40 MG/1 ML SDV IVPUSH SCH ×2 (08:45→21:18)
[2017-06-28] MEDS: Aspirin 81 MG Tab.Chew PO SCH (21:17)
[2017-06-28] MEDS: QUEtiapine 100 MG Tab PO SCH (21:17)
[2017-06-28] MEDS: Remove Patch LIDODERM TRDERM SCH (21:18)
[2017-06-29] MEDS: Levothyroxine 100 MCG Tab PO SCH (06:18)
[2017-06-29] MEDS: Albuterol/Ipratropium 3.0-0.5 MG/3 ML Neb Soln NEB SCH ×3 (07:38→21:51)
[2017-06-29] MEDS: Ciprofloxacin in D5W 400 MG in Premix Bag 1 BAG IV SCH ×4 (08:33→21:33)
[2017-06-29] MEDS: Multivitamins, Therapeutic with Minerals Tab PO SCH (08:33)
[2017-06-29] MEDS: hydrOXYzine HCl 25 MG Tab PO SCH ×3 (08:33→21:35)
[2017-06-29] MEDS: Lidocaine 5% 700 MG Patch TOP SCH (08:34)
[2017-06-29] MEDS: [UNRECOGNIZED DRUG - REMARK] PO SCH (08:39)
[2017-06-29] MEDS: QUEtiapine 25 MG Tab PO SCH (08:40)
[2017-06-29] MEDS: methylPREDNISolone Sodium Succinate 40 MG/1 ML SDV IVPUSH SCH ×2 (08:40→21:34)
[2017-06-29] MEDS: Pantoprazole 40 MG Tab.CR PO SCH (08:40)
[2017-06-29] MEDS: Clopidogrel 75 MG Tab PO SCH (08:40)
[2017-06-29] MEDS: QUEtiapine 100 MG Tab PO SCH (21:35)
[2017-06-29] MEDS: Aspirin 81 MG Tab.Chew PO SCH (21:35)
[2017-06-29] MEDS: Remove Patch LIDODERM TRDERM SCH (21:52)
[2017-06-30] MEDS: Levothyroxine 100 MCG Tab PO SCH (06:03)
[2017-06-30 06:57] LABS: CHLORIDE,CL 97 mmol/L (101-111); SODIUM,NA 130 mmol/L (135-145)
[2017-06-30] MEDS: Albuterol/Ipratropium 3.0-0.5 MG/3 ML Neb Soln NEB SCH ×3 (07:28→21:35)
[2017-06-30] MEDS: Ciprofloxacin in D5W 400 MG in Premix Bag 1 BAG IV SCH ×4 (08:20→21:40)
[2017-06-30] MEDS: Lidocaine 5% 700 MG Patch TOP SCH (08:22)
[2017-06-30] MEDS: Multivitamins, Therapeutic with Minerals Tab PO SCH (08:23)
[2017-06-30] MEDS: methylPREDNISolone Sodium Succinate 40 MG/1 ML SDV IVPUSH SCH (08:23)
[2017-06-30] MEDS: QUEtiapine 25 MG Tab PO SCH (08:23)
[2017-06-30] MEDS: hydrOXYzine HCl 25 MG Tab PO SCH ×3 (08:24→21:35)
[2017-06-30] MEDS: Clopidogrel 75 MG Tab PO SCH (08:24)
[2017-06-30] MEDS: Pantoprazole 40 MG Tab.CR PO SCH (08:24)
[2017-06-30] MEDS: [UNRECOGNIZED DRUG - REMARK] PO SCH (08:25)
--- NOTE | 2017-06-30 16:17 | PCM.PN ---
- General Info Date of Service: 06/30/17 Admission Dx/Problem (Free Text): Bacteremia, weakness Subjective Update: The patient has mental retardation but reports no concerns. Discussing with the nursing staff, he is doing well. Occasionally this problem with flushing that the PICC line. Has remained on IV antibiotics and IV steroids. - Review of Systems General: Denies: Fever Pulmonary: Denies: Shortness of Breath Cardiovascular: Denies: Chest Pain - Patient Data Vitals - Most Recent: Last Vital Signs Temp 36.5 C 06/30/17 16:00 Pulse 81 06/30/17 16:00 Resp 20 06/30/17 16:00 BP 135/68 06/30/17 16:00 Pulse Ox 96 06/30/17 16:00 Weight - Most Recent: 77.882 kg I&O - Last 24 Hours: Intake & Output 06/30/17 06/30/17 06/30/17 06:59 14:59 22:59 Intake Total 500 Balance 500 Lab Results Last 24 Hours: Laboratory Results - last 24 hr 06/30/17 06/30/17 Range/Units 06:22 06:22 WBC 18.5 H (5.0-10.0) 10^3/uL RBC 4.44 L (4.6-6.2) 10^6/uL Hgb 12.9 L (14.0-18.0) g/dL Hct 37.0 L (40.0-54.0) % MCV 83.3 (80-100) fL MCH 29.1 (27.0-34.0) pg MCHC 34.9 (33.0-35.0) g/dL Plt Count 232 (150-450) 10^3/uL Neut % (Auto) 89.8 H (42.2-75.2) % Lymph % (Auto) 5.7 L (20.5-50.1) % [place] % (Auto) 4.4 (2-8) % Eos % (Auto) 0.0 L (1.0-3.0) % Baso % (Auto) 0.1 (0.0-1.0) % Add Manual Diff Yes Neutrophils % (Manual) 92 H (42-75) % Lymphocytes % (Manual) 6 L (20-50) % Monocytes % (Manual) 2 (2-8) % Sodium 130 L (135-145) mmol/L Potassium 4.5 (3.6-5.0) mmol/L Chloride 97 L (101-111) mmol/L Carbon Dioxide 24.0 (21.0-31.0) mmol/L Anion Gap 13.5 BUN 31 H (7-18) mg/dL Creatinine 0.8 (0.6-1.3) mg/dL Est Cr Clr Drug Dosing 55.32 mL/min Estimated GFR (MDRD) > 60 Glucose 127 H (74-105) mg/dL Calcium 8.5 (8.4-10.2) mg/dl Nixon Results Last 24 Hours: Microbiology 06/25/17 06:30 Aerobic Blood Culture - Final Blood - Venous - Lab Draw NO GROWTH AFTER 5 DAYS Anaerobic Blood Culture - Final 06/25/17 06:25 Aerobic Blood Culture - Final Blood - Venous NO GROWTH AFTER 5 DAYS Anaerobic Blood Culture - Final NO GROWTH AFTER 5 DAYS Med Orders - Current: Current Medications Acetaminophen (Tylenol) 650 mg PO Q4H PRN PRN Reason: Pain (mild 1-3 )/fever Last Admin: 06/26/17 11:17 Dose: 650 mg Albuterol/Ipratropium (Duoneb 3.0-0.5 Mg/3 Ml) 3 ml NEB TIDRT [facility] Last Admin: 06/30/17 15:21 Dose: 3 ml Aspirin (Aspirin) 81 mg PO BEDTIME [facility] Last Admin: 06/29/17 21:35 Dose: 81 mg Bisacodyl (Dulcolax) 10 mg RECTAL DAILY PRN PRN Reason: Constipation Clopidogrel Bisulfate (Plavix) 75 mg PO DAILY [facility] Last Admin: 06/30/17 08:24 Dose: 75 mg Diphenhydramine HCl (Benadryl) 25 mg PO BEDTIME PRN PRN Reason: Sleep Docusate Sodium (Colace) 100 mg PO DAILY PRN PRN Reason: Constipation Glycerin (Sani-Supp Pediatric) 1.2 gm RECTAL ASDIRECTED PRN PRN Reason: Constipation Hydroxyzine HCl (Atarax) 25 mg PO TID [facility] Last Admin: 06/30/17 13:49 Dose: 25 mg Ciprofloxacin/Dextrose 400 mg/ (Premix) 200 mls @ 200 mls/hr IV Q12HR [facility] Stop: 07/24/17 21:01 Last Admin: 06/30/17 08:20 Dose: 200 mls/hr Levothyroxine Sodium (Synthroid) 100 mcg PO ACBREAKFAST [facility] Last Admin: 06/30/17 06:03 Dose: 100 mcg Lidocaine (Lidoderm 5%) 700 mg TOP Q24H [facility] Last Admin: 06/30/17 08:22 Dose: 700 mg Miscellaneous Information (Remove Patch) 1 ea TRDERM BEDTIME [facility] Last Admin: 06/29/17 21:52 Dose: 1 ea Multivitamins/Minerals (Vitamins And Minerals) 1 tab PO WITHBREAKFAST [facility] Last Admin: 06/30/17 08:23 Dose: 1 tab Nitroglycerin (Nitrostat) 0.4 mg SL Q5M PRN PRN Reason: Chest Pain Bicalutamide 50mg (Non- Form Med) 1 each PO DAILY [facility] Last Admin: 06/30/17 08:25 Dose: 1 each Pantoprazole Sodium (Protonix) 40 mg PO DAILY [facility] Last Admin: 06/30/17 08:24 Dose: 40 mg Prednisone (Prednisone) 40 mg PO WITHBREAKFAST [facility] Quetiapine Fumarate (Seroquel) 50 mg PO DAILY [facility] Last Admin: 06/30/17 08:23 Dose: 50 mg Quetiapine Fumarate (Seroquel) 100 mg PO BEDTIME [facility] Last Admin: 06/29/17 21:35 Dose: 100 mg Senna/Docusate Sodium (Senna Plus) 1 tab PO BID [facility] Last Admin: 06/30/17 08:23 Dose: 1 tab Sodium Chloride (Saline Flush) 10 ml FLUSH ASDIRECTED PRN PRN Reason: IV Use Last Admin: 06/27/17 23:18 Dose: 10 ml Discontinued Medications Albuterol/Ipratropium (Duoneb 3.0-0.5 Mg/3 Ml) 3 ml NEB Q4HRRT [facility] Last Admin: 06/26/17 07:41 Dose: 3 ml Methylprednisolone Sodium Succinate (Solu-Medrol) 40 mg IVPUSH Q8H [facility] Last Admin: 06/27/17 03:50 Dose: 40 mg Methylprednisolone Sodium Succinate (Solu-Medrol) 40 mg IVPUSH BID [facility] Last Admin: 06/30/17 08:23 Dose: 40 mg Pantoprazole Sodium (Protonix Iv) 40 mg IVPUSH DAILY [facility] Last Admin: 06/26/17 09:54 Dose: 40 mg Patient's Own Medication Bicalutamide 50mg 1 each PO DAILY [facility] Last Admin: 06/27/17 11:28 Dose: Not Given - Exam Quality Assessment: Supplemental Oxygen General: Alert, Oriented Lungs: Decreased Breath Sounds. No: Rales, Wheezing Cardiovascular: Regular Rate, Regular Rhythm GI/Abdominal Exam: Normal Bowel Sounds, Soft, Non-Tender Extremities: Normal Inspection Skin: Warm, Dry Psy/Mental Status: Alert. No: Normal Affect - Problem List & Annotations (1) Bacteremia, coagulase-negative staphylococcal SNOMED Code(s): 869170646168 Code(s): R78.81 - BACTEREMIA Status: Acute Priority: High Current Visit : No - Problem List Review Problem List Initiated/Reviewed/Updated: Yes - My Orders Last 24 Hours: My Active Orders 06/30/17 16:15 predniSONE 40 mg PO WITHBREAKFAST - Plan Plan:: The patient is an 82-year-old gentleman with mental retardation, Parkinsons disease, cerebrovascular disease. He was admitted on 20 June with progressive shortness of breath to acute care. Chest x-ray showed bilateral patchy infiltrates. There was also concern for possible aspiration component. Acute pneumonia possible aspiration related Blood culture grew Staphylococcus hemolyticus Treated with ciprofloxacin IV The patient has a PICC line Continue IV antibiotic for sepsis Acute COPD exacerbation Treat with RussoNeb, I will change the IV steroids to oral. We will continue to taper steroids further, switch to once a day dosing today Hyponatremia This is mild well monitor periodically Leukocytosis Likely due to infection and steroids Improving will monitor periodically
[2017-06-30] MEDS: predniSONE 20 MG Tab PO SCH (17:18)
[2017-06-30] MEDS: Aspirin 81 MG Tab.Chew PO SCH (21:35)
[2017-06-30] MEDS: QUEtiapine 100 MG Tab PO SCH (21:35)
[2017-06-30] MEDS: Remove Patch LIDODERM TRDERM SCH (21:35)
[2017-06-30] MEDS: Acetaminophen 325 MG Tab PO PRN (23:50)
[2017-06-30] MEDS: diphenhydrAMINE 25 MG Tab PO PRN (23:50)
[2017-07-01] MEDS: Levothyroxine 100 MCG Tab PO SCH (06:05)
[2017-07-01] MEDS: Ciprofloxacin in D5W 400 MG in Premix Bag 1 BAG IV SCH ×4 (08:12→20:27)
[2017-07-01] MEDS: Lidocaine 5% 700 MG Patch TOP SCH (08:12)
[2017-07-01] MEDS: Sodium Chloride 0.9% 10 ML Syringe FLUSH PRN ×4 (08:14→21:32)
[2017-07-01] MEDS: QUEtiapine 25 MG Tab PO SCH (08:17)
[2017-07-01] MEDS: Multivitamins, Therapeutic with Minerals Tab PO SCH (08:17)
[2017-07-01] MEDS: Acetaminophen 325 MG Tab PO PRN (08:18)
[2017-07-01] MEDS: hydrOXYzine HCl 25 MG Tab PO SCH ×3 (08:18→20:33)
[2017-07-01] MEDS: predniSONE 20 MG Tab PO SCH (08:18)
[2017-07-01] MEDS: Pantoprazole 40 MG Tab.CR PO SCH (08:19)
[2017-07-01] MEDS: Clopidogrel 75 MG Tab PO SCH (08:19)
[2017-07-01] MEDS: Albuterol/Ipratropium 3.0-0.5 MG/3 ML Neb Soln NEB SCH ×2 (10:12→20:52)
[2017-07-01] MEDS: [UNRECOGNIZED DRUG - REMARK] PO SCH (10:45)
[2017-07-01] MEDS: Aspirin 81 MG Tab.Chew PO SCH (20:32)
[2017-07-01] MEDS: QUEtiapine 100 MG Tab PO SCH (20:33)
[2017-07-01] MEDS: Remove Patch LIDODERM TRDERM SCH (20:59)
[2017-07-02] MEDS: Levothyroxine 100 MCG Tab PO SCH (05:56)
[2017-07-02] MEDS: hydrOXYzine HCl 25 MG Tab PO SCH ×3 (08:28→20:32)
[2017-07-02] MEDS: Multivitamins, Therapeutic with Minerals Tab PO SCH (08:28)
[2017-07-02] MEDS: Lidocaine 5% 700 MG Patch TOP SCH (08:28)
[2017-07-02] MEDS: predniSONE 20 MG Tab PO SCH (08:28)
[2017-07-02] MEDS: Pantoprazole 40 MG Tab.CR PO SCH (08:29)
[2017-07-02] MEDS: QUEtiapine 25 MG Tab PO SCH (08:29)
[2017-07-02] MEDS: Clopidogrel 75 MG Tab PO SCH (08:29)
[2017-07-02] MEDS: Ciprofloxacin in D5W 400 MG in Premix Bag 1 BAG IV SCH ×4 (08:40→20:26)
[2017-07-02] MEDS: Albuterol/Ipratropium 3.0-0.5 MG/3 ML Neb Soln NEB SCH ×2 (09:47→20:47)
[2017-07-02] MEDS: [UNRECOGNIZED DRUG - REMARK] PO SCH (09:51)
[2017-07-02] MEDS: Sodium Chloride 0.9% 10 ML Syringe FLUSH PRN ×3 (20:25→21:35)
[2017-07-02] MEDS: QUEtiapine 100 MG Tab PO SCH (20:32)
[2017-07-02] MEDS: Aspirin 81 MG Tab.Chew PO SCH (20:33)
[2017-07-02] MEDS: Remove Patch LIDODERM TRDERM SCH (20:51)
[2017-07-03] MEDS: Levothyroxine 100 MCG Tab PO SCH (05:18)
[2017-07-03] MEDS: predniSONE 20 MG Tab PO SCH (09:57)
[2017-07-03] MEDS: Multivitamins, Therapeutic with Minerals Tab PO SCH (09:58)
[2017-07-03] MEDS: QUEtiapine 25 MG Tab PO SCH (09:58)
[2017-07-03] MEDS: Pantoprazole 40 MG Tab.CR PO SCH (09:58)
[2017-07-03] MEDS: Clopidogrel 75 MG Tab PO SCH (09:59)
[2017-07-03] MEDS: hydrOXYzine HCl 25 MG Tab PO SCH ×3 (09:59→21:03)
[2017-07-03] MEDS: Albuterol/Ipratropium 3.0-0.5 MG/3 ML Neb Soln NEB SCH ×3 (10:00→18:42)
[2017-07-03] MEDS: Lidocaine 5% 700 MG Patch TOP SCH (10:00)
[2017-07-03] MEDS: [UNRECOGNIZED DRUG - REMARK] PO SCH (10:02)
[2017-07-03] MEDS: Ciprofloxacin in D5W 400 MG in Premix Bag 1 BAG IV SCH ×4 (10:09→21:09)
[2017-07-03] MEDS: Sodium Chloride 0.9% 10 ML Syringe FLUSH PRN (10:11)
[2017-07-03] MEDS: Aspirin 81 MG Tab.Chew PO SCH (21:03)
[2017-07-03] MEDS: QUEtiapine 100 MG Tab PO SCH (21:04)
[2017-07-03] MEDS: Remove Patch LIDODERM TRDERM SCH (21:05)
[2017-07-04] MEDS: Levothyroxine 100 MCG Tab PO SCH (06:09)
[2017-07-04] MEDS: Albuterol/Ipratropium 3.0-0.5 MG/3 ML Neb Soln NEB SCH ×3 (07:20→17:40)
[2017-07-04] MEDS: Ciprofloxacin in D5W 400 MG in Premix Bag 1 BAG IV SCH ×4 (08:53→20:14)
[2017-07-04] MEDS: Lidocaine 5% 700 MG Patch TOP SCH (08:54)
[2017-07-04] MEDS: predniSONE 20 MG Tab PO SCH (08:55)
[2017-07-04] MEDS: hydrOXYzine HCl 25 MG Tab PO SCH ×3 (08:55→20:11)
[2017-07-04] MEDS: Clopidogrel 75 MG Tab PO SCH (08:55)
[2017-07-04] MEDS: Pantoprazole 40 MG Tab.CR PO SCH (08:55)
[2017-07-04] MEDS: QUEtiapine 25 MG Tab PO SCH (08:55)
[2017-07-04] MEDS: Multivitamins, Therapeutic with Minerals Tab PO SCH (08:55)
[2017-07-04] MEDS: Sodium Chloride 0.9% 10 ML Syringe FLUSH PRN (08:55)
[2017-07-04] MEDS: [UNRECOGNIZED DRUG - REMARK] PO SCH (08:56)
[2017-07-04] MEDS: Aspirin 81 MG Tab.Chew PO SCH (20:10)
[2017-07-04] MEDS: QUEtiapine 100 MG Tab PO SCH (20:11)
[2017-07-04] MEDS: Remove Patch LIDODERM TRDERM SCH (23:04)
[2017-07-05] MEDS: Levothyroxine 100 MCG Tab PO SCH (05:49)
[2017-07-05] MEDS: Albuterol/Ipratropium 3.0-0.5 MG/3 ML Neb Soln NEB SCH ×2 (07:35→17:10)
[2017-07-05] MEDS: Multivitamins, Therapeutic with Minerals Tab PO SCH (09:38)
[2017-07-05] MEDS: Lidocaine 5% 700 MG Patch TOP SCH (09:38)
[2017-07-05] MEDS: hydrOXYzine HCl 25 MG Tab PO SCH ×2 (09:38→20:23)
[2017-07-05] MEDS: Clopidogrel 75 MG Tab PO SCH (09:39)
[2017-07-05] MEDS: [UNRECOGNIZED DRUG - REMARK] PO SCH (09:39)
[2017-07-05] MEDS: Pantoprazole 40 MG Tab.CR PO SCH (09:39)
[2017-07-05] MEDS: QUEtiapine 25 MG Tab PO SCH (09:39)
[2017-07-05] MEDS: predniSONE 20 MG Tab PO SCH (09:42)
[2017-07-05] MEDS: Ciprofloxacin in D5W 400 MG in Premix Bag 1 BAG IV SCH ×4 (09:47→20:27)
[2017-07-05] MEDS: Aspirin 81 MG Tab.Chew PO SCH (20:22)
[2017-07-05] MEDS: QUEtiapine 100 MG Tab PO SCH (20:23)
[2017-07-05] MEDS: Sodium Chloride 0.9% 10 ML Syringe FLUSH PRN (21:32)
[2017-07-05] MEDS: Remove Patch LIDODERM TRDERM SCH (23:41)
[2017-07-06] MEDS: Levothyroxine 100 MCG Tab PO SCH (05:59)
[2017-07-06] MEDS: Albuterol/Ipratropium 3.0-0.5 MG/3 ML Neb Soln NEB SCH ×3 (06:59→17:00)
[2017-07-06] MEDS: Sodium Chloride 0.9% 10 ML Syringe FLUSH PRN ×3 (10:36→22:02)
[2017-07-06] MEDS: Ciprofloxacin in D5W 400 MG in Premix Bag 1 BAG IV SCH ×4 (10:37→22:01)
[2017-07-06] MEDS: Lidocaine 5% 700 MG Patch TOP SCH (10:43)
[2017-07-06] MEDS: Multivitamins, Therapeutic with Minerals Tab PO SCH (10:53)
[2017-07-06] MEDS: predniSONE 20 MG Tab PO SCH (10:53)
[2017-07-06] MEDS: Pantoprazole 40 MG Tab.CR PO SCH (10:53)
[2017-07-06] MEDS: hydrOXYzine HCl 25 MG Tab PO SCH ×5 (10:53→22:43)
[2017-07-06] MEDS: QUEtiapine 25 MG Tab PO SCH (10:53)
[2017-07-06] MEDS: Clopidogrel 75 MG Tab PO SCH (10:54)
[2017-07-06] MEDS: [UNRECOGNIZED DRUG - REMARK] PO SCH (10:54)
[2017-07-06] MEDS: Aspirin 81 MG Tab.Chew PO SCH (22:43)
[2017-07-06] MEDS: QUEtiapine 100 MG Tab PO SCH (22:43)
[2017-07-06] MEDS: Remove Patch LIDODERM TRDERM SCH (22:49)
[2017-07-07] MEDS: Levothyroxine 100 MCG Tab PO SCH (06:34)
[2017-07-07] MEDS: Clopidogrel 75 MG Tab PO SCH (08:53)
[2017-07-07] MEDS: Pantoprazole 40 MG Tab.CR PO SCH (08:53)
[2017-07-07] MEDS: QUEtiapine 25 MG Tab PO SCH (08:53)
[2017-07-07] MEDS: Multivitamins, Therapeutic with Minerals Tab PO SCH (08:54)
[2017-07-07] MEDS: hydrOXYzine HCl 25 MG Tab PO SCH ×3 (08:54→22:21)
[2017-07-07] MEDS: predniSONE 20 MG Tab PO SCH (08:55)
[2017-07-07] MEDS: Acetaminophen 325 MG Tab PO PRN ×2 (08:55→22:22)
[2017-07-07] MEDS: Lidocaine 5% 700 MG Patch TOP SCH (08:58)
[2017-07-07] MEDS: [UNRECOGNIZED DRUG - REMARK] PO SCH (08:59)
[2017-07-07] MEDS: Ciprofloxacin in D5W 400 MG in Premix Bag 1 BAG IV SCH ×4 (09:52→22:18)
[2017-07-07] MEDS: Sodium Chloride 0.9% 10 ML Syringe FLUSH PRN ×3 (09:54→22:30)
[2017-07-07 10:57] LABS: CHLORIDE,CL 95 mmol/L (101-111); SODIUM,NA 130 mmol/L (135-145)
[2017-07-07] MEDS: Potassium Chloride 10 MEQ Tab.ER PO SCH ×2 (11:50→17:40)
[2017-07-07] MEDS: Heparin Sodium 5,000 Units/ML Vial SUBCUT SCH ×2 (11:58→22:28)
--- NOTE | 2017-07-07 13:34 | PN ---
DATE: 07/07/2017 SUBJECTIVE: Mr. Gurdeep Lopez is an 82-year-old male with medical history significant for chronic obstructive pulmonary disease and who is a resident of [facility] with Parkinson disease, bipolar affective disorder, and cerebrovascular disease with history of TIAs in the past and cardiac pacemaker placed, was admitted to the swing-bed after he was noted to have aspiration pneumonia and sepsis with Staphylococcus haemolyticus and has been on IV ciprofloxacin. For the last 24 hours, the patient is not very communicate, unable to get a detailed history from the patient, but he remains hemodynamically stable. PHYSICAL EXAMINATION: Vital Signs: Temperature of 96.5, pulse of 69, blood pressure 112/47, respiratory rate of 20, saturating at 96% on room air. General Appearance: The patient is awake and alert. Follows commands spontaneously. Cardiovascular System: S1 and S2 heard with normal intensity. No gallops. Respiratory System: Clear to auscultation bilaterally. No wheeze. No crepitations. Abdomen: Soft. Bowel sounds positive. Nontender. No rigidity. Extremities: No edema in bilateral lower extremities. MEDICATIONS: Reviewed. Continue with: 1. Tylenol 650 every 4 hours as needed for pain. 2. DuoNeb 3 mL nebulizer twice a day. 3. Aspirin 81 mg daily. 4. Dulcolax suppository as needed for constipation daily. 5. Ciprofloxacin 400 mg IV q.12 hourly. 6. Plavix 75 mg daily. 7. Benadryl 25 mg at bedtime as needed for sleep. 8. Docusate sodium 100 mg daily as needed for constipation. 9. Hydroxyzine 25 mg, 3 times a day. 10.Levothyroxine 100 mcg daily. 11.Lidoderm transdermal patch daily. 12.Nitroglycerin 0.4 mg sublingual as needed for chest pain. 13.Protonix 40 mg daily. 14.Prednisone 40 mg with breakfast. 15.Seroquel 100 mg at bedtime and 50 mg in a.m. LABORATORY DATA: WBC 12.1, hemoglobin 12, hematocrit 34.6, platelet count 176. Sodium 130, potassium 3.5, chloride 95, bicarb 26, BUN 18, creatinine 0.8, glucose 120. ASSESSMENT: 1. Aspiration pneumonia leading to sepsis with Staphylococcus haemolyticus, on IV antibiotics, ciprofloxacin. 2. Hyponatremia. 3. Hypokalemia. 4. Leukocytosis. 5. Parkinson disease. 6. Bipolar affective disorder. 7. Movement disorder. 8. Hypothyroidism. 9. History of prostate cancer. 10.History of cerebrovascular accident with transient ischemic attack in the past. 11.Status post cardiac pacemaker placed. PLAN: 1. Sepsis: The patient was admitted to the swing-bed for continuation of IV antibiotics, ciprofloxacin. He was noted to have sepsis with Staphylococcus hemolyticus as a complication of aspiration pneumonia. He will require 2 more days of IV antibiotics and possible discharge to [facility] on . His leukocytosis seems to be improving. 2. Hypertension: The patient's blood pressure seems to be in acceptable range. Continue with current treatment plan. 3. Hypokalemia: We will replace with oral potassium chloride. 4. Hypothyroidism: The patient is currently on levothyroxine. Continue the same. [facility] /[id number]
[2017-07-07] MEDS: Albuterol/Ipratropium 3.0-0.5 MG/3 ML Neb Soln NEB SCH ×2 (17:39→17:41)
[2017-07-07] MEDS: QUEtiapine 100 MG Tab PO SCH (22:21)
[2017-07-07] MEDS: Aspirin 81 MG Tab.Chew PO SCH (22:22)
[2017-07-07] MEDS: diphenhydrAMINE 25 MG Tab PO PRN (22:22)
[2017-07-07] MEDS: Remove Patch LIDODERM TRDERM SCH (22:28)
[2017-07-08] MEDS: Levothyroxine 100 MCG Tab PO SCH (05:32)
[2017-07-08] MEDS: QUEtiapine 25 MG Tab PO SCH (09:41)
[2017-07-08] MEDS: predniSONE 20 MG Tab PO SCH (09:41)
[2017-07-08] MEDS: Pantoprazole 40 MG Tab.CR PO SCH (09:42)
[2017-07-08] MEDS: [UNRECOGNIZED DRUG - REMARK] PO SCH (09:42)
[2017-07-08] MEDS: Multivitamins, Therapeutic with Minerals Tab PO SCH (09:42)
[2017-07-08] MEDS: hydrOXYzine HCl 25 MG Tab PO SCH ×3 (09:42→20:05)
[2017-07-08] MEDS: Potassium Chloride 10 MEQ Tab.ER PO SCH ×2 (09:42→17:02)
[2017-07-08] MEDS: Clopidogrel 75 MG Tab PO SCH (09:42)
[2017-07-08] MEDS: Lidocaine 5% 700 MG Patch TOP SCH (09:43)
[2017-07-08] MEDS: Ciprofloxacin in D5W 400 MG in Premix Bag 1 BAG IV SCH ×4 (09:43→20:13)
[2017-07-08] MEDS: Sodium Chloride 0.9% 10 ML Syringe FLUSH PRN (09:43)
[2017-07-08] MEDS: Heparin Sodium 5,000 Units/ML Vial SUBCUT SCH ×2 (10:24→20:29)
[2017-07-08] MEDS: Albuterol/Ipratropium 3.0-0.5 MG/3 ML Neb Soln NEB SCH ×2 (11:25→17:03)
[2017-07-08] MEDS: Aspirin 81 MG Tab.Chew PO SCH (20:05)
[2017-07-08] MEDS: QUEtiapine 100 MG Tab PO SCH (20:05)
[2017-07-08] MEDS: Remove Patch LIDODERM TRDERM SCH (21:59)
[2017-07-09] MEDS: Levothyroxine 100 MCG Tab PO SCH (06:43)
[2017-07-09] MEDS: Albuterol/Ipratropium 3.0-0.5 MG/3 ML Neb Soln NEB SCH ×2 (09:00→17:45)
[2017-07-09] MEDS: Potassium Chloride 10 MEQ Tab.ER PO SCH ×2 (09:00→17:45)
[2017-07-09] MEDS: predniSONE 20 MG Tab PO SCH (09:00)
[2017-07-09] MEDS: Multivitamins, Therapeutic with Minerals Tab PO SCH (09:00)
[2017-07-09] MEDS: hydrOXYzine HCl 25 MG Tab PO SCH ×3 (09:00→20:01)
[2017-07-09] MEDS: Pantoprazole 40 MG Tab.CR PO SCH (09:00)
[2017-07-09] MEDS: Clopidogrel 75 MG Tab PO SCH (09:00)
[2017-07-09] MEDS: QUEtiapine 25 MG Tab PO SCH (09:01)
[2017-07-09] MEDS: Heparin Sodium 5,000 Units/ML Vial SUBCUT SCH ×2 (09:01→20:45)
[2017-07-09] MEDS: Ciprofloxacin in D5W 400 MG in Premix Bag 1 BAG IV SCH ×4 (09:02→20:04)
[2017-07-09] MEDS: Sodium Chloride 0.9% 10 ML Syringe FLUSH PRN ×3 (09:02→21:06)
[2017-07-09] MEDS: Lidocaine 5% 700 MG Patch TOP SCH (09:02)
[2017-07-09] MEDS: [UNRECOGNIZED DRUG - REMARK] PO SCH (09:03)
[2017-07-09] MEDS: Aspirin 81 MG Tab.Chew PO SCH (20:01)
[2017-07-09] MEDS: QUEtiapine 100 MG Tab PO SCH (20:02)
[2017-07-09] MEDS: Remove Patch LIDODERM TRDERM SCH (22:33)
[2017-07-10] MEDS: Levothyroxine 100 MCG Tab PO SCH (05:55)
[2017-07-10 07:32] VITALS: BP 111/81
[2017-07-10] MEDS: Lidocaine 5% 700 MG Patch TOP SCH (09:04)
[2017-07-10] MEDS: hydrOXYzine HCl 25 MG Tab PO SCH ×2 (09:05→15:10)
[2017-07-10] MEDS: Multivitamins, Therapeutic with Minerals Tab PO SCH (09:05)
[2017-07-10] MEDS: Clopidogrel 75 MG Tab PO SCH (09:05)
[2017-07-10] MEDS: Pantoprazole 40 MG Tab.CR PO SCH (09:05)
[2017-07-10] MEDS: Potassium Chloride 10 MEQ Tab.ER PO SCH (09:06)
[2017-07-10] MEDS: predniSONE 20 MG Tab PO SCH (09:06)
[2017-07-10] MEDS: QUEtiapine 25 MG Tab PO SCH (09:06)
[2017-07-10] MEDS: Ciprofloxacin in D5W 400 MG in Premix Bag 1 BAG IV SCH ×2 (09:08)
[2017-07-10] MEDS: Heparin Sodium 5,000 Units/ML Vial SUBCUT SCH (09:11)
[2017-07-10] MEDS: Sodium Chloride 0.9% 10 ML Syringe FLUSH PRN ×2 (09:14→10:17)
[2017-07-10] MEDS: [UNRECOGNIZED DRUG - REMARK] PO SCH (09:52)
[2017-07-10] MEDS: Albuterol/Ipratropium 3.0-0.5 MG/3 ML Neb Soln NEB SCH (11:15)
[2017-07-10] MEDS ORDERED: FLU VAC QS 17-18(4YR UP)CEL/PF 60 MCG/0.5 ML Syringe IM ONE (11:57)
--- NOTE | 2017-08-07 03:02 | DISCH ---
FINAL DIAGNOSES: 1. History of bacteremia. 2. Chronic hyponatremia. 3. Chronic anemia. BRIEF HISTORY AND PHYSICAL EXAMINATION: The patient is an 82-year-old male admitted for continued IV antibiotics. The patient is a resident of [facility], and they do not do IV antibiotics there. The patient was recently noted to have positive blood cultures, Staphylococcus haemolyticus. Has past medical history of Parkinson's; bipolar affective disorder; movement disorder; hypertension, not on any medication; hypothyroidism; history of prostate cancer; history of CVA; and aspiration pneumonia. Documented physical exam on admission to [facility] showed; Vital Signs: Blood pressure of 119/74, heart rate of 89 beats per minute, respirations 20 breaths per minute, oxygen saturation 98% on 2 L, and afebrile. Chest: Auscultation of bilateral breath sounds with no wheezes, rales, or rhonchi. Neurologic: The patient was nonverbal. Workup done during [facility] bed showed negative blood cultures. As per lab, leukocytosis started to trend down from 22.4 to 12.1, hemoglobin stable at 12.0, and sodium latest 130. BRIEF HOSPITALIZATION COURSE: The patient was admitted under swing bed, and IV medications were continued. He was also continued on bronchodilator nebulized therapy. He has been on pureed diet with thickened liquids. He remained hemodynamically stable during his stay in the swing bed and remained afebrile. After completion of IV antibiotics, discharged to his facility. Latest vital signs; blood pressure 111/81, heart rate of 94 beats per minute, respirations 20 breaths per minute, oxygen saturation 96%, and temperature 36.2. DISCHARGE INSTRUCTIONS: Follow up with primary care within 2 weeks from discharge and to come back to the emergency room if with emergent health concerns. [facility] /[id number]
== END 2017-07-10 13:15 | disposition home or self-care (01) | DRG 871 ==
LOC: DL.MS 16:36
PROVIDERS: ADMIT Internal Medicine; ATTEND Internal Medicine
PROC: 05H533Z Insertion of Infusion Device into Right Subclavian Vein, Percutaneous Approach (ICD-10-PCS; principal; 2017-06-24)
PROC: 3E03329 Introduction of Other Anti-infective into Peripheral Vein, Percutaneous Approach (ICD-10-PCS; 2017-06-24)
DX: A41.9 Sepsis, unspecified organism (principal); J69.0 Pneumonitis due to inhalation of food and vomit; J44.1 Chronic obstructive pulmonary disease with (acute) exacerbation; J44.0 Chronic obstructive pulmonary disease with (acute) lower respiratory infection; E87.1 Hypo-osmolality and hyponatremia; Z79.2 Long term (current) use of antibiotics; Z79.82 Long term (current) use of aspirin; G20 Parkinson's disease; E03.9 Hypothyroidism, unspecified; Z85.46 Personal history of malignant neoplasm of prostate; F31.9 Bipolar disorder, unspecified; E87.6 Hypokalemia; I10 Essential (primary) hypertension; Z86.73 Personal history of transient ischemic attack (TIA), and cerebral infarction without residual deficits; F79 Unspecified intellectual disabilities; Z23 Encounter for immunization
CPT/HCPCS: 36415; 36569; 71010; 80048; 85025; 85027; 87040; 90674; 94640; 94640-76; A9270-GY; C9113; G0008; J0744; J1644; J2920; J7050

== ENCOUNTER 2017-09-14 07:02 | Emergency (ER) | payer MEDICARE, MEDICAID ==
[2017-09-14] MEDS ORDERED: Sodium Chloride 0.9% 10 ML Syringe FLUSH PRN (07:12)
--- NOTE | 2017-09-14 07:17 | EDM.PDOC ---
ED HPI GENERAL MEDICAL PROBLEM - General Chief Complaint: Fever Stated Complaint: BY AMBULANCE Time Seen by Provider: 09/14/17 07:05 Source of Information: Reports: Patient, RN, RN Notes Reviewed History Limitations: Reports: No Limitations - History of Present Illness INITIAL COMMENTS - FREE TEXT/NARRATIVE: Pt presents to the ER per [facility]. Pt is lethargic and obtunded, but breathing spontaneously upon arrival. halfway staff state he had a fever and was given tylenol. The patient has a significant history of aspiration pneumonia and choking episodes. Onset: Gradual - Related Data Allergies Allergy/AdvReac Type Severity Reaction Status Date / Time No Known Allergies Allergy Verified 06/20/17 21:08 Home Meds: Home Meds Aspirin [Lis Chewable Aspirin] 81 mg PO BEDTIME 09/08/13 [History] Calcium Carb & Citrate/Vit D3 [Calcium + D3 ER Tablet] 1 each PO BID 09/08/13 [ History] Carbamide Peroxide [Debrox] 15 ml OT ASDIRECTED 09/08/13 [History] QUEtiapine [SEROquel] 50 mg PO DAILY 09/08/13 [History] QUEtiapine [SEROquel] 100 mg PO BEDTIME 09/08/13 [History] Levothyroxine [Synthroid] 100 mcg PO ACBREAKFAST tablet 06/14/15 [Rx] Clopidogrel [Plavix] 75 mg PO BEDTIME 09/22/15 [History] Nitroglycerin [Nitrostat] 0.3 mg SL ASDIRECTED PRN 09/22/15 [History] diphenhydrAMINE [Benadryl] 25 mg PO BEDTIME PRN 09/22/15 [History] Acetaminophen 325 mg PO ASDIRECTED 05/23/16 [History] Lactose-Reduced Food [Ensure] 1 can PO TID 05/23/16 [History] Sennosides/Docusate Sodium [Senna S Tablet] 1 each PO BID 05/23/16 [History] Bacitracin/Neomycin/Polymyxin [Triple Antibiotic Oint] 1 applic TOP ASDIRECTED PRN 06/20/17 [History] Bicalutamide [Casodex] 1 tab PO DAILY 06/20/17 [History] Glycerin 1 supp RECTAL ASDIRECTED PRN 06/20/17 [History] Lidocaine [Lidoderm] 4 percent TOP DAILY 06/20/17 [History] Multivitamins w-Iron/Ca/FA/Min [Thera M Plus] 1 tab PO DAILY 06/20/17 [History] Naproxen Sodium 1 tab PO BID 06/20/17 [History] hydrOXYzine HCl [Atarax] 1 tab PO TID 06/20/17 [History] Albuterol [Proventil Neb Soln] 1.25 mg NEB BID PRN 06/21/17 [History] Docusate Sodium [Colace] 100 mg PO DAILY PRN cap 07/10/17 [Rx] Docusate Sodium/Sennosides [Senna Plus] 1 tab PO BID tablet 07/10/17 [Rx] Glycerin [Sani-Supp Pediatric] 1.2 gm RECTAL ASDIRECTED PRN supp 07/10/17 [Rx] Past Medical History HEENT History: Reports: Impaired Vision Other HEENT History: [place] even with hearing aides. Wears glasses Cardiovascular History: Reports: Pacemaker, Syncope Respiratory History: Reports: Bronchitis, Recurrent, Pneumonia, Recurrent Gastrointestinal History: Reports: Chronic Constipation Genitourinary History: Reports: Prostate Disorder, Urinary Incontinence, Other ( See Below) Other Genitourinary History: prostate ca Musculoskeletal History: Reports: Osteoarthritis, Other (See Below) Other Musculoskeletal History: compression fractures Neurological History: Reports: Other (See Below) Other Neuro History: syncope Psychiatric History: Reports: Dementia, Developmental Delay, Other (See Below) Other Psychiatric History: devel delat, impulse disorder, ocd, intellectual disordr, head injury unspecified Endocrine/Metabolic History: Reports: Hypothyroidism Hematologic History: Reports: Anemia Immunologic History: Reports: None Oncologic (Cancer) History: Reports: Prostate, Other (See Below) Other Oncologic History: pt on lupron injections Dermatologic History: Reports: Other (See Below) Other Dermatologic History: skin to neck and head creme is to be applied as pt picks at skin - Infectious Disease History Infectious Disease History: Reports: Shingles - Past Surgical History Cardiovascular Surgical History: Reports: Pacer GI Surgical History: Reports: Colonoscopy Social & Family History - Family History Family Medical History: Noncontributory - Tobacco Use Smoking Status *Q: Never Smoker Second Hand Smoke Exposure: No - Caffeine Use Caffeine Use: Reports: None - Alcohol Use Days Per Week of Alcohol Use: 0 - Recreational Drug Use Recreational Drug Use: No - Living Situation & Occupation Living situation: Reports: Other Occupation: Disabled ED ROS GENERAL - Review of Systems Review Of Systems: ROS reveals no pertinent complaints other than HPI. ED EXAM, SEPSIS - Physical Exam Exam: See Below Exam Limited By: Altered Mental Status General Appearance: Lethargic, Obtunded, Mild Distress Eye Exam: Bilateral Eye: Other (Pt does not responsively open eyes at this time. Pupils 4 and reactive sluggish) Ears: Normal External Exam, Hearing Grossly Normal Nose: Normal Inspection Throat/Mouth: Normal Inspection, No Airway Compromise Head: Atraumatic, Normocephalic Neck: Normal Inspection, Non-Tender, Limited Range of Motion Respiratory/Chest: No Accessory Muscle Use, Decreased Breath Sounds, Crackles ( throughout) Cardiovascular: Normal Peripheral Pulses, No Edema, No Gallop, No JVD, No Murmur , No Rub Peripheral Pulses: 1+: Radial (L), Radial (R), Dorsalis Pedis (L), Dorsalis Pedis (R) GI/Abdominal Exam: Normal Bowel Sounds, Soft, Non-Tender, No Organomegaly, No Distention, No Abnormal Bruit, No Mass (Male) Exam: Deferred Rectal (Males) Exam: Deferred Back: Normal Inspection, Decreased Range of Motion Extremities: Normal Inspection, Non-Tender, No Pedal Edema, Normal Capillary Refill, Limited Range of Motion Neurological: Unresponsive (localizes to pain and movement) Psychiatric: Other (unresponsive) Skin: Warm, Intact, Normal Color, No Rash. No: Dry (moist) Lymphatic: Bilateral: No Adenopathy EKG INTERPRETATION EKG Date: 09/14/17 Time: 07:43 Rhythm: NSR [place]: Normal P-Wave: Present QRS: RBBB ST-T: Normal QT: Normal Comparison: No Change Course - Vital Signs Last Recorded V/S: Last Vital Signs Temp 96.5 F 09/14/17 07:12 Pulse 93 09/14/17 07:12 Resp 16 09/14/17 07:12 BP 79/48 L 09/14/17 07:12 Pulse Ox 95 09/14/17 07:57 - Orders/Labs/Meds Orders: Active Orders 24 hr Category Date Time Status EKG Documentation Completion [RC] STAT Care 09/14/17 07:12 Active Peripheral IV Care [RC] . DIRECTED Care 09/14/17 07:12 Active RT Aerosol Therapy [RC] ASDIRECTED Care 09/14/17 07:39 Active CULTURE BLOOD [BC] Stat Lab 09/14/17 07:20 Received CULTURE BLOOD [BC] Stat Lab 09/14/17 07:39 Received UA W/MICROSCOPIC [URIN] Stat Lab 09/14/17 08:10 Received Sodium Chloride 0.9% [Saline Flush] Med 09/14/17 07:12 Active 10 ml FLUSH ASDIRECTED PRN Blood Culture x2 Reflex Set [OM.PC] Stat Oth 09/14/17 07:12 Ordered Peripheral IV Insertion Adult [OM.PC] Stat Oth 09/14/17 07:11 Ordered Medication Orders Sodium Chloride (Saline Flush) 10 ml FLUSH ASDIRECTED PRN PRN Reason: Keep Vein Open Labs: Laboratory Tests 09/14/17 09/14/17 09/14/17 Range/Units 07:20 07:20 07:20 WBC 13.1 H (5.0-10.0) 10^3/uL RBC 3.99 L (4.6-6.2) 10^6/uL Hgb 11.6 L (14.0-18.0) g/dL Hct 34.3 L (40.0-54.0) % MCV 86.0 (80-100) fL MCH 29.1 (27.0-34.0) pg MCHC 33.8 (33.0-35.0) g/dL Plt Count 178 (150-450) 10^3/uL Neut % (Auto) 86.9 H (42.2-75.2) % Lymph % (Auto) 7.5 L (20.5-50.1) % [place] % (Auto) 5.2 (2-8) % Eos % (Auto) 0.2 L (1.0-3.0) % Baso % (Auto) 0.2 (0.0-1.0) % Sodium 136 (135-145) mmol/L Potassium 4.4 (3.6-5.0) mmol/L Chloride 101 (101-111) mmol/L Carbon Dioxide 24.0 (21.0-31.0) mmol/L Anion Gap 15.4 BUN 34 H (7-18) mg/dL Creatinine 1.3 (0.6-1.3) mg/dL Est Cr Clr Drug Dosing TNP Estimated GFR (MDRD) 53 BUN/Creatinine Ratio 26.15 Glucose 153 H (74-105) mg/dL Lactic Acid 2.3 H (0.5-2.2) mmol/L Calcium 9.0 (8.4-10.2) mg/dl Total Bilirubin 0.4 (0.2-1.0) mg/dL AST 34 (10-42) IU/L ALT 17 (10-60) IU/L Alkaline Phosphatase 55 (42-121) IU/L Troponin I < 0.02 (0.00-0.02) ng/ml Total Protein 6.4 L (6.7-8.2) g/dl Albumin 3.4 (3.2-5.5) g/dl Globulin 3.0 Albumin/Globulin Ratio 1.13 Meds: Medications Generic Name Dose Route Start Last Admin Trade Name Freq PRN Reason Stop Dose Admin Sodium Chloride 10 ml 09/14/17 07:12 Saline Flush FLUSH ASDIRECTED PRN Keep Vein Open Discontinued Medications Generic Name Dose Route Start Last Admin Trade Name Freq PRN Reason Stop Dose Admin Albuterol 2.5 mg 09/14/17 07:38 09/14/17 07:55 Proventil Neb Soln NEB 09/14/17 07:39 2.5 mg ONETIME ONE Administration Sodium Chloride 1,000 mls @ 999 mls/hr 09/14/17 07:18 09/14/17 08:13 Normal Saline IV 09/14/17 08:18 250 mls/hr .BOLUS ONE Administration - Radiology Interpretation Free Text/Narrative:: Portable Chest xray: Expiratory phase radiograph. Cannot rule out right infrahilar pneumonia See rad report Departure - Departure Time of Disposition: 08:28 Disposition: DC/Tfer to Acute Hospital 02 Condition: Poor, Serious Clinical Impression: Pneumonia Qualifiers: Pneumonia type: due to unspecified organism Laterality: bilateral Lung location : lower lobe of lung Qualified Code(s): J18.9 - Pneumonia, unspecified organism - Discharge Information Forms: ED Department Discharge, Interfacility Transfer EMTALA - My Orders Last 24 Hours: My Active Orders 09/14/17 07:11 Peripheral IV Insertion Adult [OM.PC] Stat 09/14/17 07:12 EKG Documentation Completion [RC] STAT Peripheral IV Care [RC] . DIRECTED Sodium Chloride 0.9% [Saline Flush] 10 ml FLUSH ASDIRECTED PRN Blood Culture x2 Reflex Set [OM.PC] Stat 09/14/17 07:20 CULTURE BLOOD [BC] Stat 09/14/17 07:39 RT Aerosol Therapy [RC] ASDIRECTED CULTURE BLOOD [BC] Stat 09/14/17 08:10 UA W/MICROSCOPIC [URIN] Stat - Assessment/Plan Last 24 Hours: My Active Orders 09/14/17 07:11 Peripheral IV Insertion Adult [OM.PC] Stat 09/14/17 07:12 EKG Documentation Completion [RC] STAT Peripheral IV Care [RC] . DIRECTED Sodium Chloride 0.9% [Saline Flush] 10 ml FLUSH ASDIRECTED PRN Blood Culture x2 Reflex Set [OM.PC] Stat 09/14/17 07:20 CULTURE BLOOD [BC] Stat 09/14/17 07:39 RT Aerosol Therapy [RC] ASDIRECTED CULTURE BLOOD [BC] Stat 09/14/17 08:10 UA W/MICROSCOPIC [URIN] Stat
[2017-09-14] MEDS ORDERED: Sodium Chloride 0.9% 1,000 ML IV ONE (07:18)
[2017-09-14 07:29] VITALS: BP 79/48
[2017-09-14] MEDS ORDERED: Albuterol 0.083% 2.5 MG/3 ML Neb Soln NEB ONE (07:38)
[2017-09-14 07:47] LABS: CHLORIDE,CL 101 mmol/L (101-111); SODIUM,NA 136 mmol/L (135-145)
[2017-09-14] MEDS ORDERED: Norepinephrine 4 MG in Dextrose 5% in Water 246 ML IV SCH ×2 (09:00)
[2017-09-14] MEDS: Norepinephrine 4 MG/4 ML SDV ONE (09:19)
--- NOTE | 2017-09-17 10:44 | EKG ---
09/14/2017 - ENRIQUE ORANTES - FINDINGS: I reviewed the EKG and agree with the machine's reading. [facility] /[id number]
== END 2017-09-14 09:05 ==
LOC: DL.ED 07:02
DX: J18.9 Pneumonia, unspecified organism (principal); Z79.82 Long term (current) use of aspirin; Z79.899 Other long term (current) drug therapy
CPT/HCPCS: 36415; 51702; 71010; 80053; 81001; 83605; 84484; 85025; 87040; 93005; 93010; 96361; 96374; 99285; J7030; J7620; 99283

== ENCOUNTER 2017-12-23 09:47 | Emergency (ER) | payer MEDICARE, MEDICAID ==
--- NOTE | 2017-12-23 10:28 | EDM.PDOC ---
ED HPI GENERAL MEDICAL PROBLEM - General Chief Complaint: General Stated Complaint: CAME BY AMBULANCE, GENERAL Time Seen by Provider: 12/23/17 09:50 Source of Information: Reports: Patient, EMS, RN, RN Notes Reviewed History Limitations: Reports: No Limitations - History of Present Illness INITIAL COMMENTS - FREE TEXT/NARRATIVE: Jose 82 yo M who presents today per EMS due to altered mental status and increased weakness. He is a resident of the [facility]. Staff present with Jose reports that he has been sick off and on for he last several months with cold sx and pneumonia. She reports that they noticed this am that he was more "tired this am. Normally he will respond to us and try and push away when we try and get him dressed. Today he is not doing that" Staff reports that he has not voided for the last 19 hours. She reports that over the last couple days he has had decreased oral intake. Limited patient provided information due to the fact patient does not respond when asked questions. Onset: Today Improves with: Reports: None Worsens with: Reports: None Associated Symptoms: Reports: Weakness - Related Data Allergies Allergy/AdvReac Type Severity Reaction Status Date / Time No Known Allergies Allergy Verified 06/20/17 21:08 Home Meds: Home Meds Aspirin [Lis Chewable Aspirin] 81 mg PO BEDTIME 09/08/13 [History] Calcium Carb & Citrate/Vit D3 [Calcium + D3 ER Tablet] 1 each PO BID 09/08/13 [ History] Carbamide Peroxide [Debrox] 15 ml OT ASDIRECTED 09/08/13 [History] QUEtiapine [SEROquel] 50 mg PO DAILY 09/08/13 [History] QUEtiapine [SEROquel] 100 mg PO BEDTIME 09/08/13 [History] Levothyroxine [Synthroid] 100 mcg PO ACBREAKFAST tablet 06/14/15 [Rx] Clopidogrel [Plavix] 75 mg PO BEDTIME 09/22/15 [History] Nitroglycerin [Nitrostat] 0.3 mg SL ASDIRECTED PRN 09/22/15 [History] diphenhydrAMINE [Benadryl] 25 mg PO BEDTIME PRN 09/22/15 [History] Acetaminophen 325 mg PO ASDIRECTED 05/23/16 [History] Lactose-Reduced Food [Ensure] 1 can PO TID 05/23/16 [History] Sennosides/Docusate Sodium [Senna S Tablet] 1 each PO BID 05/23/16 [History] Bacitracin/Neomycin/Polymyxin [Triple Antibiotic Oint] 1 applic TOP ASDIRECTED PRN 06/20/17 [History] Bicalutamide [Casodex] 1 tab PO DAILY 06/20/17 [History] Glycerin 1 supp RECTAL ASDIRECTED PRN 06/20/17 [History] Lidocaine [Lidoderm] 4 percent TOP DAILY 06/20/17 [History] Multivitamins w-Iron/Ca/FA/Min [Thera M Plus] 1 tab PO DAILY 06/20/17 [History] Naproxen Sodium 1 tab PO BID 06/20/17 [History] hydrOXYzine HCl [Atarax] 1 tab PO TID 06/20/17 [History] Albuterol [Proventil Neb Soln] 1.25 mg NEB BID PRN 06/21/17 [History] Docusate Sodium [Colace] 100 mg PO DAILY PRN cap 07/10/17 [Rx] Docusate Sodium/Sennosides [Senna Plus] 1 tab PO BID tablet 07/10/17 [Rx] Glycerin [Sani-Supp Pediatric] 1.2 gm RECTAL ASDIRECTED PRN supp 07/10/17 [Rx] Past Medical History HEENT History: Reports: Cataract, Impaired Vision Other HEENT History: [place] even with hearing aides. Wears glasses Cardiovascular History: Reports: CAD, Hypertension, Pacemaker, Syncope Respiratory History: Reports: Bronchitis, Recurrent, Pneumonia, Recurrent Gastrointestinal History: Reports: Chronic Constipation Genitourinary History: Reports: Prostate Disorder, Urinary Incontinence, Other ( See Below) Other Genitourinary History: prostate ca Musculoskeletal History: Reports: Osteoarthritis, Other (See Below) Other Musculoskeletal History: compression fractures Neurological History: Reports: Other (See Below) Other Neuro History: syncope Psychiatric History: Reports: Dementia, Developmental Delay, OCD, Other (See Below) Other Psychiatric History: devel delat, impulse disorder, ocd, intellectual disordr, head injury unspecified Endocrine/Metabolic History: Reports: Hypothyroidism Hematologic History: Reports: Anemia Immunologic History: Reports: None Oncologic (Cancer) History: Reports: Prostate, Other (See Below) Other Oncologic History: pt on lupron injections Dermatologic History: Reports: Other (See Below) Other Dermatologic History: skin to neck and head creme is to be applied as pt picks at skin - Infectious Disease History Infectious Disease History: Reports: Shingles - Past Surgical History Cardiovascular Surgical History: Reports: Pacer GI Surgical History: Reports: Colonoscopy Social & Family History - Family History Family Medical History: Noncontributory - Tobacco Use Smoking Status *Q: Never Smoker Second Hand Smoke Exposure: No - Caffeine Use Caffeine Use: Reports: None - Alcohol Use Days Per Week of Alcohol Use: 0 - Recreational Drug Use Recreational Drug Use: No - Living Situation & Occupation Living situation: Reports: Other Occupation: Disabled ED ROS GENERAL - Review of Systems Review Of Systems: ROS reveals no pertinent complaints other than HPI. ED EXAM, GENERAL - Physical Exam Exam: See Below Exam Limited By: Other (Limitied information avalable from patient. Hx taken per [facility] staff) Eye Exam: Bilateral Eye: PERRL Ears: Normal External Exam, Normal Canal, Normal TMs Ear Exam: Bilateral Ear: Auricle Normal, Canal Normal, TM normal Nose: Normal Inspection, Normal Mucosa, No Blood Throat/Mouth: Normal Inspection, Normal Lips, Normal Teeth, Normal Gums, Normal Oropharynx, Normal Voice, No Airway Compromise Head: Atraumatic, Normocephalic Neck: Normal Inspection, Supple, Non-Tender, Full Range of Motion Respiratory/Chest: No Respiratory Distress, Lungs Clear, Normal Breath Sounds, No Accessory Muscle Use, Chest Non-Tender Cardiovascular: Normal Peripheral Pulses, Regular Rate, Rhythm, No Edema, No Gallop, No JVD, No Murmur, No Rub GI/Abdominal: Normal Bowel Sounds, Soft, Non-Tender, No Organomegaly, No Distention, No Abnormal Bruit, No Mass (Male) Exam: Deferred Rectal (Males) Exam: Deferred Back Exam: Normal Inspection, Full Range of Motion, NT Extremities: Normal Inspection, Non-Tender, No Pedal Edema, Normal Capillary Refill, Limited Range of Motion (Patient has prior contractures. ) Neurological: Other (Limited neuro assessment due to patient's decreased mental status. Patient unable to follow commands. Does respond with tactile stimulation. ) Psychiatric: Other (Unable to assess) Skin Exam: Warm, Dry, Intact, Normal Color, No Rash Lymphatic: No Adenopathy EKG INTERPRETATION EKG Date: 12/23/17 Time: 10:27 Rhythm: Other (Normal sinus rhythm with a bundle branch block noted.) Rate (Beats/Min): 81 [place]: Normal P-Wave: Present QRS: Normal ST-T: Normal QT: Normal Comparison: No Change Course - Vital Signs Last Recorded V/S: Last Vital Signs Temp 96.4 F 12/23/17 09:48 Pulse 83 12/23/17 09:48 Resp 20 12/23/17 09:48 BP 111/65 12/23/17 12:23 Pulse Ox 94 L 12/23/17 12:23 - Orders/Labs/Meds Orders: Active Orders 24 hr Category Date Time Status EKG Documentation Completion [RC] URGENT Care 12/23/17 10:09 Active CULTURE BLOOD [BC] Stat Lab 12/23/17 11:48 Results UA W/MICROSCOPIC [URIN] Stat Lab 12/23/17 10:09 Ordered Labs: Laboratory Tests 12/23/17 12/23/17 12/23/17 Range/Units 10:24 10:24 11:48 WBC 13.8 H (5.0-10.0) 10^3/uL RBC 4.13 L (4.6-6.2) 10^6/uL Hgb 12.1 L (14.0-18.0) g/dL Hct 34.2 L (40.0-54.0) % MCV 82.8 D (80-100) fL MCH 29.3 (27.0-34.0) pg MCHC 35.4 H (33.0-35.0) g/dL Plt Count 227 (150-450) 10^3/uL Neut % (Auto) 81.7 H (42.2-75.2) % Lymph % (Auto) 11.1 L (20.5-50.1) % [place] % (Auto) 5.5 (2-8) % Eos % (Auto) 1.5 (1.0-3.0) % Baso % (Auto) 0.2 (0.0-1.0) % Sodium 133 L (135-145) mmol/L Potassium 4.5 (3.6-5.0) mmol/L Chloride 101 (101-111) mmol/L Carbon Dioxide 24.0 (21.0-31.0) mmol/L Anion Gap 12.5 BUN 38 H (7-18) mg/dL Creatinine 1.5 H (0.6-1.3) mg/dL Est Cr Clr Drug Dosing 29.50 mL/min Estimated GFR (MDRD) 45 BUN/Creatinine Ratio 25.33 Glucose 119 H (74-105) mg/dL Lactic Acid 1.5 (0.5-2.2) mmol/L Calcium 9.2 (8.4-10.2) mg/dl Total Bilirubin 1.1 H (0.2-1.0) mg/dL AST 29 (10-42) IU/L ALT 19 (10-60) IU/L Alkaline Phosphatase 57 (42-121) IU/L Troponin I < 0.02 (0.00-0.02) ng/ml Total Protein 6.4 L (6.7-8.2) g/dl Albumin 3.5 (3.2-5.5) g/dl Globulin 2.9 Albumin/Globulin Ratio 1.21 Meds: Medications Discontinued Medications Generic Name Dose Route Start Last Admin Trade Name Freq PRN Reason Stop Dose Admin Sodium Chloride 1,000 mls @ 999 mls/hr 12/23/17 11:11 12/23/17 11:31 Normal Saline IV 12/23/17 12:11 999 mls/hr .BOLUS ONE Administration Departure - Departure Time of Disposition: 13:51 Disposition: Home, Self-Care 01 Condition: Fair Clinical Impression: Mild dehydration - Discharge Information Instructions: Dehydration, Elderly Forms: ED Department Discharge Care Plan Goals: Encourage fluids. Return to clinic or ER if develops fever, worsening symptoms or other concerns.
--- NOTE | 2017-12-23 10:52 | CR ---
CLINICAL HISTORY: 82-year-old male with altered mentation. INTERPRETATION: Upright AP portable chest film unchanged since 14 September 2017 exam, i.e., borderlin e cardiomegaly accentuated by less than optimal inspiratory effort. Cardiac pacemaker with wires inta ct and unchanged. Hiatus hernia lower middle mediastinum. . No new cephalization of flow, signs of alveolar edema or dependent pleural fluid accumulation. No new lung mass or focal lobar pneumonia. No atelectasis/collapse. No pneumothorax or free subdiaphragmatic air.
[2017-12-23 10:58] LABS: CHLORIDE,CL 101 mmol/L (101-111); SODIUM,NA 133 mmol/L (135-145)
[2017-12-23] MEDS ORDERED: Sodium Chloride 0.9% 1,000 ML IV ONE (11:11)
[2017-12-23 12:26] VITALS: BP 111/65
--- NOTE | 2017-12-23 19:47 | EKG ---
12/23/2017 - ENRIQUE ORANTES - TIME: 10:27 a.m. FINDINGS: EKG shows sinus rhythm. Nonspecific T-wave abnormalities, especially in the inferior leads. [facility] /[id number]
== END 2017-12-23 14:30 | disposition home or self-care (01) ==
LOC: DL.ED 09:47
DX: E86.0 Dehydration (principal); E03.9 Hypothyroidism, unspecified; Z79.899 Other long term (current) drug therapy
CPT/HCPCS: 36415; 71045; 80053; 83605; 84484; 85025; 87040; 93005; 93010; 96360; 99284; J7030